=== PATIENT | male | born 1945 | race Caucasian/White ===

== ENCOUNTER 2016-08-29 10:33 | Inpatient (IN) | payer MEDICARE ==
[~2016-08-29] VITALS: Ht 175.3 cm; Wt 131.5 kg
--- NOTE | ~2016-08-29 | HEMODYNAMI ---
PATIENT:LIZETH RUIZ MEDICAL RECORD: [id number] : 45 LOCATION:D.[facility] ADMISSION DATE: 08/29/16 Generatedon:08/31/20169:43 Patient name: LIZETH RUIZ Patient #: [id number] SSN: : 1945 Date of study: 08/31/2016 Page: Of Hemodynamic Procedure Report Patient Data Patient Demographics Procedure consent was obtained First Name: LIZETH Gender: Male Last Name: JOSEPH : 1945 Middle Initial: CARMEN Age: 71 year(s) Patient #: [id number] Race: Unknown Additional ID: [id number] Contact details Address: [address] [place] [address] [address] State: [place] City: [facility] Zip code: [address] Past Medical History Allergies: No known allergies Admission Admission Data Admission Date: 08/29/2016 Admission Time: 13:07 Room #: D.2202 Weight (lbs.): 290 Weight (kg.): 131.54 Procedure Procedure Types Cath Procedure Peripheral Cath Diagnostic Procedure Cath Peripheral Abd/Extremity Extremities Bilat Lower Extremity Procedure Description Procedure Date Procedure Date: 08/31/2016 Procedure Start Time: 9:16 Procedure Staff Name Function Alexandre Escobar MD Performing Physician Suma Jackson RT Scrub Suma Owens RN Nurse Caron Murphy RT Sawmill Relief Worker Caron Murphy RT Monitor Sandra Gallardo RN Nurse Procedure Data Cath Procedure Fluoroscopy Diagnostic fluoroscopy Total fluoroscopy Time: 2.2 time: 2.2 min min Diagnostic fluoroscopy Total fluoroscopy dose: dose: 96.78 mGy 96.78 mGy Contrast Material Contrast Material Type Amount (ml) Isovue 300 16 Entry Location Entry Primary Successful Side Size Upsize Upsize Entry Closure Succes sful Closure Location (Fr) 1 (Fr) 2 (Fr) Remarks Device Remarks Femoral Left Exoseal artery Diagnostic catheters Device Type Used For End Catheter Placement Merit ULTRA BOLUS FLUSH 5Fr 65CM catheter Procedure Medications Medication Administration Route Dosage Oxygen NC 3 l/min Lidocaine 1% added to field 20 Heparin Flush Bag added to field 3 bags (1000units/500ml NS) Benadryl I.V. 50 mg Versed I.V. 1 mg Fentanyl I.V. 50 mcg Versed I.V. 0.5 mg Fentanyl I.V. 25 mcg Hemodynamics Rest Heart Rate: 80 (bpm) Snapshots Pre Cath Intra NCS Post Cath Vital Signs Time Heart Resp SPO2 NIBP (mmHg) Rhythm Pain Sedation Rate (ipm) (%) Status Level (bpm) 9:00:11 79 25 99 128/87(116) NSR 0 (11) 10(A) , No pain 9:04:18 82 23 100 131/80(122) NSR 0 (11) 10(A) , No pain 9:08:34 76 29 99 132/63(103) NSR 0 (11) 10(A) , No pain 9:12:50 74 23 99 115/61(87) NSR 0 (11) 10(A) , No pain 9:17:02 76 24 99 133/62(96) NSR 0 (11) 10(A) , No pain 9:21:20 76 26 99 131/64(103) NSR 0 (11) 9(A) , No pain 9:25:34 76 25 99 131/70(107) NSR 0 (11) 9(A) , No pain 9:29:50 77 16 100 125/67(112) NSR 0 (11) 9(A) , No pain 9:34:07 77 23 98 129/61(84) NSR 0 (11) 9(A) , No pain 9:38:23 75 21 99 138/66(112) NSR 0 (11) 9(A) , No pain 9:42:43 77 24 98 131/66(103) NSR 0 (11) 9(A) , No pain Medications Time Medication Route Dose Verified Delivered Reason Notes Effe ctiveness by by 9:13:16 Oxygen NC 3 Suma Suma used for l/min Graciela Graciela trial attorney TIA 9:13:30 Lidocaine 1% added 20ml Suma Schroeder for local to vial Graciela Shawn anesthetic field TIA SHEN 9:13:42 Heparin Flush added 3 Sumaramez Schroeder used for Bag to bags Graciela Shawn procedure (1000units/500ml field RN MD MAYO) 9:13:52 Benadryl I.V. 50 mg Suma Suma Per Graciela Graciela physician RN RN 9:16:28 Versed I.V. 1 mg Suma Suma for Graciela Graciela sedation RN RN 9:16:35 Fentanyl I.V. 50 Suma Suma for mcg Graciela Graciela sedation RN RN 9:33:46 Versed I.V. 0.5 Suma Suma for mg Graciela Graciela sedation RN RN 9:33:51 Fentanyl I.V. 25 Suma Suma for mcg Graciela Graciela sedation RN department operations manager Log Time Note 8:35:34 Patient Weight : 290 kg 8:36:15 Use device set IR Diagnostic 8:36:17 Sterile Angiographic Pack opened to sterile field. 8:36:18 Bag Decanter opened to sterile field. 8:59:21 Vital chart was started 9:00:44 Time tracking: Regular hours 9:03:37 Micropuncture VSI 4FR kit opened to sterile field. 9:03:38 Cook BENTSON 145cm guide wire opened to sterile field. 9:03:39 St Rachid 5FR Sheath opened to sterile field. 9:04:12 Plan of Care:Hemodynamics will remain stable., Cardiac rhythm will remain stable., Comfort level will be maintained., Respiratory function will remain adequate., Patient/ family verbilizes understanding of procedure., Procedure tolerated without complication., Recovers from procedure without complications.. 9:04:17 Patient received from Med/Surg to IR Alert and oriented. Tansferred to table in Supine position. 9:04:18 Correct patient and procedure confirmed by team. 9:04:20 Signed procedure consent form obtained from patient. 9:04:21 ECG and BP/O2 sat monitors applied to patient. 9:04:23 Baseline sample Acquired. 9:04:24 Full Disclosure recording started 9:04:25 9:04:31 H&P Date Dictated: 08/31/2016 Within 30 days and on chart.. 9:04:32 Pre-procedure instructions explained to patient. 9:04:32 Pre-op teaching completed and patient verbalized understanding. 9:04:35 Family unavailable. 9:04:38 Patient NPO since Midnight. 9:04:47 Patient allergic to No known allergies 9:04:50 Is the patient allergic to Iodine/contrast media? No. 9:04:52 Is patient on blood thinner?Yes 9:04:56 Patient diabetic? Yes. 9:05:01 If diabetic: On Metformin? Yes 9:05:03 9:05:05 ----Pre-sedation anethsthesia assessment.---- 9:05:17 Snore? No 9:05:20 Sleep apnea? No 9:05:26 Deviated septum? No 9:05:30 Sticks out tongue? Yes 9:05:34 Airway obstruction? No ? 9:05:37 Dentures? No ? 9:05:40 9:05:43 Pre procedure: right dorsailis pedis pulse Doppler 9:05:47 Pre procedure: left dorsailis pedis pulse Doppler 9:05:51 Pre procedure: right posterior tibial pulse Doppler 9:05:56 Pre procedure: left posterior tibial pulse Doppler 9:06:04 IV patent on arrival in left forearm with 0.9% NaCl at [facility]. 9:06:10 Left groin area was prepped with chlora-prep and draped in sterile fashion 9:06:13 Alarms reviewed by Nelson Buchanan 9:06:14 Sharps counted by scrub and verified by RMagdalenaNMagdalena 9:06:14 :13:16 Oxygen 3 l/min NC was given by Suma Owens RN; used for procedure; ::30 Lidocaine 1% 20ml vial added to field was given by Alexandre Escobar MD; for local anesthetic; :13:42 Heparin Flush Bag (1000units/500ml NS) 3 bags added to field was given by Alexandre Escobar MD; used for procedure; 9:13:52 Benadryl 50 mg I.V. was given by Suma Owens RN; Per physician; 9:15:06 Physician arrived 9:16:15 --------ALL STOP TIME OUT------ :16:16 Final Timeout: patient, procedure, and site verified with staff and physician. All members of the team are in agreement. 9:16:28 Versed 1 mg I.V. was given by Suma Owens RN; for sedation; 9:16:30 Physical assessment completed. ASA score P 3 - A patient with severe systemic disease as per Alexandre Escobar MD. 9:16:35 Fentanyl 50 mcg I.V. was given by Suma Owens RN; for sedation; 9:16:36 Sedation plan: IV Moderate Sedation Versed, Fentanyl 9:16:42 Procedure started. 9:16:50 Local anesthetic to left femerol artery with Lidocaine 1% by Alexandre Escobar MD.INITIAL ACCESS ONLY 9:16:58 Arterial access obtained using ultrasound guidance. 9:18:58 A [employer] ULTRA BOLUS FLUSH 5Fr 65CM catheter was advanced over the wire and used for . 9:25:17 Angiogram performed in multiple views. 9:33:46 Versed 0.5 mg I.V. was given by Suma Owens RN; for sedation; 9:33:51 Fentanyl 25 mcg I.V. was given by Suma Owens RN; for sedation; 9:38:01 A sheath was inserted into the Left Femoral artery 9:38:01 Sheath removed intact; hemostasis achieved with Exoseal to the Left Femoral artery. 9:38:11 Cordis 5Fr Exoseal opened to sterile field. 9:40:01 Procedure ended.(Physican Out) 9:40:13 Fluoroscopy time 02.20 minutes. 9:40:20 Fluoroscopy dose: 96.78 mGy 9:40:20 Flurop Dose total: 96.78 9:40:32 Contrast amount:Isovue 300 16ml. 9:40:34 Sharps counted by scrub and verified by R.N. 9:40:37 Procedure and supply charges have been captured, reviewed, submitted and are correct. 9:43:05 Vital chart was stopped 9:43:07 End room use (Document Last) Device Usage Item Name Manufacture Quantity Catalog Number Hospital Part Current Min imal Lot# / Charge Number Stock Stock Serial# Code Sterile Cardinal 1 [id number] Angiographic Health Pack Bag Decanter Microtek 1 [id number] [id number] 5 [employer] Micropuncture VSI VASCULAR 1 [id number] 5 VSI 4FR kit SOLUTIONS [facility] Medical 1 [id number] [id number] Rachid 5FR St Rachid 1 [id number] [id number] [id number] 5 [id number] Sheath Merit ULTRA Merit 1 [id number] 5 BOLUS FLUSH Medical 5Fr 65CM catheter Cordis 5Fr Cardinal 1 [id number] [id number] 10 Exoseal Health Signature Audit [place]et Stage Time Signature Unsigned Intra-Procedure 08/31/2016 Caron Murphy 9:43:21 AM RT(R) Signatures Monitor : Caron Murphy RT Signature : Date : Time : [facility] [address] [place] [id number]
[2016-08-29 11:43] LABS: BASOPHILS 0.2 % (0.0-2.0); EOSINOPHILS 2.7 % (0-7); HEMATOCRIT 41.3 % (42.0-54.0); HEMOGLOBIN 13.4 g/dL (13.5-17.5); IMMATURE GRANULOCYTES 0.3 % (0-5); LYMPHOCYTES 11.3 % (15-50); MCH 29.5 pg (26.0-34.0); MCHC 32.4 g/dL (31.0-37.0); MEAN PLATELET VOLUME 10.4 fL (7.4-10.4); MONOCYTES 9.8 % (2-11); NEUTROPHILS 75.7 % (40-80); PLATELET COUNT 177 10x3/uL (130-400); RBC 4.54 10x6/uL (4.20-6.10); RDW 13.6 % (11.5-14.5)
[2016-08-29 11:59] LABS: ALBUMIN 3.3 g/dL (3.4-5.0); ALKALINE PHOSPHATASE 80 U/L (46-116); ALT (SGPT) 28 U/L (10-68); BILIRUBIN - TOTAL 0.42 mg/dL (0.2-1.3); CALC OSMOLALITY 283 mosm/kg (275-300); CALCIUM 9.1 mg/dL (8.5-10.1); CARBON DIOXIDE 27.8 mmol/L (21.0-32.0); CHLORIDE - SERUM 103 mmol/L (98-107); CREATININE - SERUM 1.2 mg/dL (0.6-1.3); GLUCOSE 155 mg/dL (74-106); POTASSIUM - SERUM 4.8 mmol/L (3.5-5.1); PROTEIN - SERUM 7.5 g/dL (6.4-8.2); SODIUM 139 mmol/L (136-145); UREA NITROGEN 20 mg/dL (7-18); eGFR NON AFRICAN AMERICAN 63 mL/min (90-120)
[2016-08-29 12:06] LABS: CREATINE KINASE 67 UL (21-232); MAGNESIUM - SERUM 1.8 mg/dL (1.8-2.4); PRO BNP 372 pg/mL (0-125); TROPONIN-I < 0.017 ng/mL (0.000-0.060)
[2016-08-29 15:17] VITALS: BP 148/71; BMI 42.9
[2016-08-29] MEDS ORDERED: NORVASC5 MG PO (15:29)
[2016-08-29] MEDS ORDERED: LOVASTATIN10 MG PO (15:31)
[2016-08-29] MEDS ORDERED: GLUCOPHAGE500 MG PO (15:32)
[2016-08-29] MEDS ORDERED: GLUCOTROL 5 MG T5 MG PO (15:34)
[2016-08-29] MEDS ORDERED: MULTIPLE VITAMI1 TA1 PO (15:35)
[2016-08-29] MEDS ORDERED: LOW DOSE ASPIRI81 M1 PO (15:35)
[2016-08-29] MEDS ORDERED: SYMBICORT 80-10.2 GM INH (15:35)
[2016-08-29] MEDS ORDERED: FERROUS SULFAT325 MG PO (15:36)
[2016-08-29] MEDS ORDERED: NIASPAN500 MG PO (15:36)
[2016-08-29 15:51] VITALS: BP 148/71
[2016-08-29 21:00] VITALS: BP 167/84
[2016-08-30 02:00] VITALS: BP 168/80
[2016-08-30 05:00] VITALS: BP 149/63
[2016-08-30 05:51] LABS: BASOPHILS 0.2 % (0.0-2.0); EOSINOPHILS 2.1 % (0-7); HEMATOCRIT 40.5 % (42.0-54.0); HEMOGLOBIN 12.9 g/dL (13.5-17.5); IMMATURE GRANULOCYTES 0.2 % (0-5); MCH 28.9 pg (26.0-34.0); MCHC 31.9 g/dL (31.0-37.0); MCV 90.8 fL (80.0-100.0); MEAN PLATELET VOLUME 10.7 fL (7.4-10.4); MONOCYTES 17.6 % (2-11); NEUTROPHILS 63.9 % (40-80); PLATELET COUNT 180 10x3/uL (130-400); RBC 4.46 10x6/uL (4.20-6.10); RDW 13.8 % (11.5-14.5); WBC 5.8 10x3/uL (4.8-10.8)
[2016-08-30 06:13] LABS: ALBUMIN 2.9 g/dL (3.4-5.0); BILIRUBIN - TOTAL 0.5 mg/dL (0.2-1.3); CALCIUM 8.7 mg/dL (8.5-10.1); CARBON DIOXIDE 30.1 mmol/L (21.0-32.0); CREATININE - SERUM 1.3 mg/dL (0.6-1.3); PROTEIN - SERUM 6.7 g/dL (6.4-8.2)
[2016-08-30 06:14] LABS: ANION GAP 11.8 mmol/L (8-16); POTASSIUM - SERUM 3.9 mmol/L (3.5-5.1)
[2016-08-30 07:47] VITALS: BP 124/66
[2016-08-30 10:46] VITALS: Ht 175.3 cm; Wt 131.5 kg
[2016-08-30 12:25] VITALS: BP 122/62
[2016-08-30 15:38] VITALS: BP 123/59
[2016-08-30 16:32] LABS: APPEARANCE CLEAR (CLEAR); BILIRUBIN NEGATIVE (NEGATIVE); COLOR YELLOW (YELLOW); GLUCOSE NEGATIVE (NEGATIVE); KETONE NEGATIVE (NEGATIVE); LEUKOCYTE ESTERASE NEGATIVE (NEGATIVE); NITRITE NEGATIVE (NEGATIVE); PROTEIN NEGATIVE (NEGATIVE); SPECIFIC GRAVITY 1.015 (1.005-1.020); UROBILINOGEN NORMAL (NORMAL)
[2016-08-30 19:00] VITALS: BP 131/60
[2016-08-31] VITALS (13 sets, daily range): BP systolic 117–163; BP diastolic 58–96
[2016-08-31 06:13] LABS: BASOPHILS 0.2 % (0.0-2.0); EOSINOPHILS 3.9 % (0-7); HEMATOCRIT 38.8 % (42.0-54.0); HEMOGLOBIN 12.4 g/dL (13.5-17.5); IMMATURE GRANULOCYTES 0.4 % (0-5); LYMPHOCYTES 16.5 % (15-50); MCH 29.1 pg (26.0-34.0); MCV 91.1 fL (80.0-100.0); MEAN PLATELET VOLUME 10.2 fL (7.4-10.4); MONOCYTES 15.7 % (2-11); NEUTROPHILS 63.3 % (40-80); PLATELET COUNT 159 10x3/uL (130-400); RBC 4.26 10x6/uL (4.20-6.10); RDW 13.5 % (11.5-14.5); WBC 4.7 10x3/uL (4.8-10.8)
[2016-08-31 06:31] LABS: ALBUMIN 2.7 g/dL (3.4-5.0); ANION GAP 12.2 mmol/L (8-16); BILIRUBIN - TOTAL 0.3 mg/dL (0.2-1.3); CALCIUM 8.1 mg/dL (8.5-10.1); CARBON DIOXIDE 30.7 mmol/L (21.0-32.0); CREATININE - SERUM 1.1 mg/dL (0.6-1.3); POTASSIUM - SERUM 3.9 mmol/L (3.5-5.1); PROTEIN - SERUM 6.4 g/dL (6.4-8.2)
[2016-08-31 07:43] LABS: APTT 38.8 SECONDS (22.8-39.4); INR 1.12 (0.85-1.17); PROTIME 14.3 SECONDS (11.6-15.0)
--- NOTE | 2016-08-31 08:14 | CN ---
PATIENT NAME:LIZETH RUIZ MEDICAL RECORD: [id number] : 45 LOCATION:D.[facility] ADMIT DATE: 08/29/16 ACCOUNT: [id number] CONSULTING PHYSICIAN: LISA COLEMAN MD REFERRING PHYSICIAN: CRISTIANE VAIL M.D. DATE OF CONSULTATION: 08/30/2016 Surgical Consultation SURGEON: Lisa Coleman MD. REASON FOR CONSULTATION: Lower extremity cellulitis. HISTORY OF PRESENT ILLNESS: A 71-year-old male who presents to the hospital with bilateral lower extremity swelling and low back pain. He says that he began developing blisters of his lower extremities below the knee and was about 2 weeks ago. He was treated for cellulitis as an outpatient, it is not improved. The patient has continued to have worsening swelling and superficial ____ of the skin. This has first patient said he had one episode a lower extremity cellulitis once approximately 2 years ago. The patient does have a history of diabetes and morbid obesity as well as congestive heart failure. The patient currently describes the pain as constant. It is tingling and is currently a 5/10. His wounds were dressed earlier today by the wound care nurse with wet-to-dry dressings and Kerlix wraps. PAST MEDICAL HISTORY: Congestive heart failure, hypertension, morbid obesity, and diabetes. ALLERGIES: No known drug allergies. HOME MEDICATIONS: Amlodipine, lovastatin, metformin, glipizide, Symbicort, aspirin, multivitamin, ferrous sulfate, ____. FAMILY HISTORY: The patient denies any history of cancer or diabetes in his mother and father. SOCIAL HISTORY: He denies any history of smoking. He does not drink alcohol socially. He denies recreational drug use. REVIEW OF SYSTEMS: A 10-point review of systems was obtained. Pertinent positives and negatives as per the HPI. PHYSICAL EXAMINATION: VITAL SIGNS: Temperature 99, heart rate 88, respirations 17, blood pressure 148/71, saturating 97% on room air. GENERAL: This is a well-developed and well-nourished, morbidly obese male in moderate distress. EYES: Extraocular muscles intact. EARS, NOSE AND THROAT: No oropharyngeal erythema or exudate. CARDIOVASCULAR: Normal sinus rhythm. PULMONARY: He has got decreased breath sounds bilaterally with bilateral crackles. ABDOMEN: Obese, soft, nontender and nondistended. NEUROLOGIC: GCS of 15 with no focal deficits. PSYCHIATRIC: He is oriented times 3. CONSULT REPORT [id number] LIZETH RUIZ EXTREMITIES: He has got bilateral venous stasis ulcers of his lower extremities below the knee and the right is more edematous than the left. The patient has palpable femoral pulses. He has palpable popliteal pulses, although the popliteal on the right is weak. He has got superficial sloughing of the skin and some pitting on the top of the foot consistent with lymphedema. LABORATORY DATA: Please see electronic medical record for full list of laboratory data which was personally reviewed. IMAGING: CTA Aorta with runoff images were personally reviewed. The patient shows runoff in both the right and left lower extremities with a 2-vessel runoff on the left. The patient has occlusion of the left peroneal artery. No iliac or aortic areas of stenosis and subcutaneous edema of bilateral lower extremities. Arterial ultrasound shows elevated velocities in the right popliteal and superficial femoral suggesting stenosis. No evidence of DVT. IMPRESSION: This is a 71-year-old male admitted for low back pain, progressively worsening lower extremity cellulitis, congestive heart failure and diabetes. The patient has venous stasis ulcers as well as a component of lymphedema, which may be independent from his congestive heart failure. The patient also has peripheral vascular disease with right femoral and popliteal stenosis. PLAN: 1. Wound care has seen and evaluated the patient, agree with wet-to-dry dressings. 2. Two-three pillow lower extremity elevation at all times while at rest. 3. IV antibiotics. 4. I will discuss with my partner or interventional radiologist for endovascular evaluation and/or angioplasty of the right lower extremity. 5. We will start the patient on anticoagulation. TRANSINT:[id number] Voice Confirmation ID: [id number] DOCUMENT ID: [id number] LISA COLEMAN MD at 0814 CC: [id number] DICTATION DATE: 08/30/161855 LEARNING AND DEVELOPMENT ASSOCIATE: 08/31/16 0439 ADM IN [place] [id number] [place] [id number]
[2016-09-01] VITALS: BP 159/65
[2016-09-01 04:00] VITALS: BP 143/59
[2016-09-01 05:22] LABS: BASOPHILS 0.2 % (0.0-2.0); EOSINOPHILS 4.7 % (0-7); HEMATOCRIT 39.4 % (42.0-54.0); HEMOGLOBIN 12.3 g/dL (13.5-17.5); IMMATURE GRANULOCYTES 0.4 % (0-5); MCH 28.6 pg (26.0-34.0); MCHC 31.2 g/dL (31.0-37.0); MCV 91.6 fL (80.0-100.0); MEAN PLATELET VOLUME 10.4 fL (7.4-10.4); MONOCYTES 13.6 % (2-11); NEUTROPHILS 66.1 % (40-80); PLATELET COUNT 172 10x3/uL (130-400); RDW 13.7 % (11.5-14.5); WBC 5.1 10x3/uL (4.8-10.8)
[2016-09-01 05:56] LABS: ALBUMIN 2.6 g/dL (3.4-5.0); ANION GAP 10.5 mmol/L (8-16); BILIRUBIN - TOTAL 0.38 mg/dL (0.2-1.3); CALCIUM 8.5 mg/dL (8.5-10.1); CARBON DIOXIDE 28.8 mmol/L (21.0-32.0); CREATININE - SERUM 1.2 mg/dL (0.6-1.3); POTASSIUM - SERUM 4.3 mmol/L (3.5-5.1); PROTEIN - SERUM 6.5 g/dL (6.4-8.2)
[2016-09-01 07:38] VITALS: BP 126/59
[2016-09-01 11:47] VITALS: BP 159/77
[2016-09-01 15:34] VITALS: BP 116/61
[2016-09-01 20:00] VITALS: BP 135/84
[2016-09-02] VITALS: BP 123/68
[2016-09-02 04:00] VITALS: BP 134/52
[2016-09-02 05:11] LABS: BASOPHILS 0.2 % (0.0-2.0); EOSINOPHILS 5.9 % (0-7); HEMATOCRIT 36.6 % (42.0-54.0); HEMOGLOBIN 11.6 g/dL (13.5-17.5); IMMATURE GRANULOCYTES 0.4 % (0-5); LYMPHOCYTES 17.2 % (15-50); MCH 28.6 pg (26.0-34.0); MCHC 31.7 g/dL (31.0-37.0); MCV 90.4 fL (80.0-100.0); MEAN PLATELET VOLUME 10.2 fL (7.4-10.4); MONOCYTES 16.5 % (2-11); NEUTROPHILS 59.8 % (40-80); PLATELET COUNT 170 10x3/uL (130-400); RBC 4.05 10x6/uL (4.20-6.10); RDW 13.4 % (11.5-14.5); WBC 4.8 10x3/uL (4.8-10.8)
[2016-09-02 05:31] LABS: ALBUMIN 2.5 g/dL (3.4-5.0); ANION GAP 8.6 mmol/L (8-16); BILIRUBIN - TOTAL 0.3 mg/dL (0.2-1.3); CALCIUM 8.4 mg/dL (8.5-10.1); CARBON DIOXIDE 28.6 mmol/L (21.0-32.0); CREATININE - SERUM 1.1 mg/dL (0.6-1.3); POTASSIUM - SERUM 4.2 mmol/L (3.5-5.1); PROTEIN - SERUM 6.1 g/dL (6.4-8.2)
[2016-09-02 08:25] VITALS: BP 137/61
[2016-09-02 16:26] VITALS: BP 132/59
[2016-09-02 20:00] VITALS: BP 145/62
[2016-09-03] VITALS: BP 140/63
[2016-09-03 04:00] VITALS: BP 136/59
[2016-09-03 05:09] LABS: BASOPHILS 0.2 % (0.0-2.0); EOSINOPHILS 7.1 % (0-7); HEMATOCRIT 37.4 % (42.0-54.0); HEMOGLOBIN 11.9 g/dL (13.5-17.5); IMMATURE GRANULOCYTES 0.6 % (0-5); LYMPHOCYTES 17.2 % (15-50); MCH 28.7 pg (26.0-34.0); MCHC 31.8 g/dL (31.0-37.0); MCV 90.3 fL (80.0-100.0); MEAN PLATELET VOLUME 9.6 fL (7.4-10.4); MONOCYTES 11.8 % (2-11); NEUTROPHILS 63.1 % (40-80); PLATELET COUNT 155 10x3/uL (130-400); RBC 4.14 10x6/uL (4.20-6.10); RDW 13.6 % (11.5-14.5); WBC 4.8 10x3/uL (4.8-10.8)
[2016-09-03 05:57] LABS: ALBUMIN 2.5 g/dL (3.4-5.0); BILIRUBIN - TOTAL 0.34 mg/dL (0.2-1.3); CALCIUM 8.4 mg/dL (8.5-10.1); CARBON DIOXIDE 28.9 mmol/L (21.0-32.0); CREATININE - SERUM 1.1 mg/dL (0.6-1.3); POTASSIUM - SERUM 3.9 mmol/L (3.5-5.1); PROTEIN - SERUM 6.3 g/dL (6.4-8.2)
[2016-09-03 07:56] VITALS: BP 137/57
[2016-09-03] MEDS ORDERED: CLEOCIN HCL300 MG PO (10:57)
[2016-09-03] MEDS ORDERED: ACIDOPHILUS LAC1 CAP PO (10:57)
[2016-09-03] MEDS ORDERED: CYCLOBENZAPRINE10 MG PO (11:26)
[2016-09-03] MEDS ORDERED: NORCO 7.5/325 T1 TA1 PO (11:26)
== END 2016-09-03 15:15 | disposition home health service (06) | DRG 300 ==
LOC: D.ER 10:33 → D.MS 13:07
PROVIDERS: Emergency Medicine; Physician Assistant Medical; Radiology Diagnostic Radiology; ADMIT Family Medicine
PROC: B41F1ZZ Fluoroscopy of Right Lower Extremity Arteries using Low Osmolar Contrast (ICD-10-PCS; principal; 2016-08-30)
PROC: B41G1ZZ Fluoroscopy of Left Lower Extremity Arteries using Low Osmolar Contrast (ICD-10-PCS; principal; 2016-08-30)
DX: I87.2 Venous insufficiency (chronic) (peripheral) (principal); L03.116 Cellulitis of left lower limb; L03.115 Cellulitis of right lower limb; Z68.41 Body mass index [BMI] 40.0-44.9, adult; E11.51 Type 2 diabetes mellitus with diabetic peripheral angiopathy without gangrene; I89.0 Lymphedema, not elsewhere classified; I11.0 Hypertensive heart disease with heart failure; I50.9 Heart failure, unspecified; E66.01 Morbid (severe) obesity due to excess calories

== ENCOUNTER → 2017-10-22 08:32 | Outpatient (CLI) | payer MEDICARE ==
[2016-08-30 10:46] VITALS: BMI 42.8
[~2017-10-22 08:32] MED LIST: ACIDOPHILUS LAC1 CAP PO; CLEOCIN HCL300 MG PO; CYCLOBENZAPRINE10 MG PO; FERROUS SULFAT325 MG PO; GLUCOPHAGE500 MG PO; GLUCOTROL 5 MG T5 MG PO; LOVASTATIN10 MG PO; LOW DOSE ASPIRI81 M1 PO; MULTIPLE VITAMI1 TA1 PO; NIASPAN500 MG PO; NORCO 7.5/325 T1 TA1 PO; NORVASC5 MG PO; SYMBICORT 80-10.2 GM INH
== END | disposition home or self-care (01) ==
LOC: D.RT 08:32
DX: J44.9 Chronic obstructive pulmonary disease, unspecified (principal)

== ENCOUNTER → 2017-11-19 07:53 | Outpatient (CLI) | payer MEDICARE, MEDICAID ==
[2016-08-30 10:46] VITALS: BMI 42.8
== END | disposition home or self-care (01) ==
LOC: D.RAD 07:53
DX: Z12.11 Encounter for screening for malignant neoplasm of colon (principal); R10.11 Right upper quadrant pain

== ENCOUNTER 2019-01-13 17:59 | Inpatient (IN) | payer MEDICARE, MEDICAID ==
[~2019-01-13] VITALS: Ht 175.3 cm; Wt 112.3 kg
--- NOTE | ~2019-01-13 | HEMODYNAMI ---
PATIENT:LIZETH RUIZ MEDICAL RECORD: [id number] : 45 LOCATION:[facility] D.2104 ADMISSION DATE: 01/13/19 Generatedon:01/16/201912:23 Patient name: LIZETH RUIZ Patient #: [id number] SSN: : 1945 Date of study: 01/16/2019 Page: Of Hemodynamic Procedure Report Patient Data Patient Demographics Procedure consent was obtained First Name: LIZETH Gender: Male Last Name: JOSEPH : 1945 [facility] Initial: CARMEN Age: 73 year(s) Patient #: [id number] Race: Unknown Additional ID: [id number] Contact details Address: [address] [place] [address] State: [place] City: [facility] Zip code: [address] Past Medical History Allergies: No known allergies Admission Admission Data Admission Date: 01/13/2019 Admission Time: 22:20 Room #: D.2104 Height (in.): 68.9 BSA: 2.35 (m2) Height (cm.): 175 BMI: 40.16 (kg/m2) Weight (lbs.): 271.17 Weight (kg.): 123 Lab Results Lab Result Date: 01/16/2019 Lab Result Time: 4:46 Biochemistry Name Units Result Min Max BUN mg/dl 45 --(----)-* 7 18 Creatinine mg/dl 1.4 --(----)*- 0.6 1.3 CBC Name Units Result Min Max Hematocrit % 35.5 *-(----)-- 42 54 Hemoglobin g/dl 11.4 *-(----)-- 13.5 17.5 Procedure Procedure Types Cath Procedure Diagnostic Procedure C [facility] w/Coronaries Sedation Charges Moderate Sedation up to 15 minutes PCI Procedure Coronary Stent Coronary Stent Initial Procedure Description Procedure Date Procedure Date: 01/16/2019 Procedure Start Time: 11:58 Procedure End Time: 12:21 Procedure Staff Name Function Dameon Benavidez MD Performing Physician Kya Edmondson RT Monitor Josey Crews RT Scrub Paz Mitchell RN Nurse Procedure Data Cath Procedure Fluoroscopy Diagnostic fluoroscopy Total fluoroscopy Time: 3.1 time: 3.1 min min Diagnostic fluoroscopy Total fluoroscopy dose: 747 dose: 747 mGy mGy Contrast Material Contrast Material Type Amount (ml) Isovue 300 104 Entry Location Entry Primary Successful Side Size Upsize Upsize Entry Closure Succes sful Closure Location (Fr) 1 (Fr) 2 (Fr) Remarks Device Remarks Femoral Right 5 Fr 6 Fr Exoseal artery Short Estimated blood loss: 10 ml Diagnostic catheters Device Type Used For End Catheter Placement MULTIPACK JL 4.0 5Fr Procedure catheter MULTIPACK 3DRC 5Fr Procedure catheter MULTIPACK Pigtail 5 Fr Procedure catheter Procedure Complications No complications Procedure Medications Medication Administration Route Dosage 0.9% NaCl I.V. 100 ml/hr Oxygen etCO2 Nasal cannula 2 l/min Lidocaine 2% added to field 20 Heparin Flush Bag added to field 2 bags (1000units/500ml NS) Heparin Bolus I.V. 5000 units Integrilin (Bolus I.V. 11.3 ml 2mg/ml) Plavix P.O. 600 mg Versed I.V. 2 mg Fentanyl I.V. 50 mcg Hemodynamics Rest BSA: 2.35 (m2) O2 Consumption: Estimated: 274.35 (ml/min) O2 Consumption indexed : Estimated:116.74 (ml/min/m) Heart Rate: 74 (bpm) Pressure Samples Time Site Value (mmHg) Purpose Heart Use Rate(bpm) 12:03 LV 124/10,18 EDP 70 Gradients Valve Time Site Site Mean SEP/DFP Peak To Heart Use 1 2 (mmHg) (sec/min) Peak Rate (mmHg) (bpm) Aortic 12:03 LV AO 70 Snapshots Pre Cath Intra NCS Post Cath Vital Signs Time Heart Resp SPO2 etCO2 NIBP (mmHg) Rhythm Pain Sedation Rate (ipm) (%) (mmHg) Status Level (bpm) 11:46:12 79 22 96 30.7 134/74(95) NSR 0 (11) 10(A) , No pain 11:50:34 67 22 95 20.9 139/92(98) NSR 0 (11) 10(A) , No pain 11:55:00 70 15 95 11.9 122/57(94) NSR 0 (11) 10(A) , No pain 11:59:25 71 15 99 14.9 122/63(90) NSR 0 (11) 9(A) , No pain 12:03:47 70 18 98 16 125/63(95) NSR 0 (11) 9(A) , No pain 12:08:07 70 32 99 28.2 117/62(84) NSR 0 (11) 9(A) , No pain 12:12:29 70 38 100 11.9 120/61(92) NSR 0 (11) 9(A) , No pain 12:16:49 77 25 97 29.9 136/71(112) NSR 0 (11) 10(A) , No pain 12:21:17 97 27.7 136/72(113) NSR 0 (11) 10(A) , No pain Medications Time Medication Route Dose Verified Delivered Reason Notes Effectiveness by by 11:44:56 0.9% NaCl I.V. 100 Dameon Paz used for ml/hr [facility] procedure MD WEBER 11:45:03 Oxygen etCO2 2 Dameon Paz used for Nasal l/min [facility] procedure cannula MD WEBER 11:45:08 Lidocaine 2% added 20ml Dameon Xiao for local to vial [facility] anesthetic field MD SHEN 11:45:12 Heparin Flush added 2 Dameon Xiao used for Bag to bags [facility] procedure (1000units/500ml field MD SHEN NS) 11:57:07 Versed I.V. 2 mg Dameon Paz for sedation [facility] Carmen Mitchell MD, RN 11:57:29 Fentanyl I.V. 50 Dameon Boyda for sedation mcg [facility] Carmen Mitchell MD, RN 12:07:01 Heparin Bolus I.V. 5000 Dameon Boyda for verif ied units [facility] anticoagulation with Dr. MD WEBER [place] 12:07:16 Integrilin I.V. 11.3 Dameon Boyda for waste d (Bolus 2mg/ml) ml [facility] Carmen Mitchell antiplatelet 8.7mL MD WEBER therapy 12:07:36 Plavix P.O. 600 Dameon Mullen for mg [facility] Carmen Mitchell antiplatelet MD WEBER therapy Procedure Log Time Note 11:23:35 Signed procedure consent form obtained from patient. 11:23:37 Diagnostic Cath status Urgent 11:23:38 Time tracking: Regular hours (M-F 7:00 - 5:00) 11:23:43 Plan of Care:Hemodynamics will remain stable., Cardiac rhythm will remain stable., Comfort level will be maintained., Respiratory function will remain adequate., Patient/ family verbilizes understanding of procedure., Procedure tolerated without complication., Recovers from procedure without complications.. 11:23:57 Patient Weight : 271.17 lbs 11:24:47 Patient Height : 68.9 inches 11:25:09 Josey MOODY(R) sent for patient. Start room use. 11:41:59 Patient received from Med II to CCL 1 Alert and oriented. Tansferred to table in Supine position. 11:42:00 Warm blankets applied, and shiv hugger turned on for patient comfort. 11:42:07 Correct patient and procedure confirmed by team. 11:42:10 ECG and BP/O2 sat monitors applied to patient. 11:42:28 H&P Date Dictated: 01/14/2019 Within 30 days and on chart.. 11:42:31 Pre-procedure instructions explained to patient. 11:42:31 Pre-op teaching completed and patient verbalized understanding. 11:42:33 Family in patients room. 11:42:38 Patient NPO since Breakfast. 11:42:45 Patient allergic to No known allergies 11:43:03 Is the patient allergic to Iodine/contrast media? No. 11:43:43 Is patient on blood thinner?No 11:43:46 Patient diabetic? Yes. 11:43:47 If diabetic: On Metformin? Yes 11:43:52 Previous problem with sedation/anesthesia? No ? 11:43:55 Snore? Yes 11:43:56 Sleep apnea? No 11:43:57 Deviated septum? No 11:43:59 Opens mouth fully? Yes 11:44:01 Sticks out tongue? Yes 11:44:14 Airway obstruction? Yes pneumonia 11:44:27 Dentures? No ? 11:44:46 Vital chart was started 11:44:56 0.9% NaCl 100 ml/hr I.V. was administered by Paz Mitchell RN; used for procedure; 11:44:59 Pre procedure: right dorsailis pedis pulse 1+ Palpable, but thready & weak; easily obliterated 11:45:01 Patient pain scale 0/10 ?. 11:45:03 Oxygen 2 l/min etCO2 Nasal cannula was administered by Paz Mitchell RN; used for procedure; 11:45:08 Lidocaine 2% 20ml vial added to field was administered by Dameon Benavidez MD; for local anesthetic; 11:45:12 Heparin Flush Bag (1000units/500ml NS) 2 bags added to field was administered by Dameon Benavidez MD; used for procedure; 11:45:15 IV patent on arrival in left forearm with 0.9% NaCl at [facility]. 11:46:21 Lab Result : BUN 45 mg/dl 11:46:21 Lab Result : Hemoglobin 11.4 g/dl 11:46:21 Lab Result : Creatinine 1.4 mg/dl 11:46:21 Lab Result : Hematocrit 35.5 % 11:46:24 Lab results completed and on chart. 11:48:01 Right groin area was prepped with chlora-prep and draped in sterile fashion 11:48:02 Alarms reviewed by R. N. 11:48:02 Sharps counted by scrub and verified by R.N. 11:48:05 Use device set Femoral Dx 11:48:06 ACIST Syringe (09830) opened to sterile field. 11:48:07 Bag Decanter (2002S) opened to sterile field. 11:48:09 ACIST Hand Control (15555) opened to sterile field. 11:48:09 ACIST Manifold (26312) opened to sterile field. 11:48:10 Tegaderm 4 x 4 (1626W) opened to sterile field. 11:48:11 Medline Cath Pack ([id number]) opened to sterile field. 11:48:11 DIAGNOSTIC WIRE .035 260cm J wire (068059) opened to sterile field. 11:48:12 DIAGNOSTIC Multipack 5Fr catheter set (MI8315) opened to sterile field. 11:48:13 SHEATH 5FR Evans (LSI547) opened to sterile field. 11:53:34 Baseline sample Acquired. 11:53:37 Rhythm: sinus rhythm 11:53:39 Full Disclosure recording started 11:56:11 --------ALL STOP TIME OUT------ 11:56:11 Final Timeout: patient, procedure, and site verified with staff and physician. All members of the team are in agreement. 11:56:12 Right groin site verified by team. 11:56:15 Maximum allowable Isovue 300 dose 300ml. Physician notified. (300ml for normal creatinines. For patients with creatinine of 1.7 or higher multiply weight(kg) x 5 divided by creatinine.) 11:56:21 Fire Safety Assessment: A--An alcohol-based skin anteseptic being used preoperatively., C--Open oxygen or nitrous oxide is being used., D--An ESU, laser, or fiber-optic light is being used. 11:56:24 Physical assessment completed. ASA score P 2 - A patient with mild systemic disease as per Dameon Benavidez MD. 11:56:26 Sedation plan: IV Moderate Sedation Medication:Versed, Fentanyl 11:56:35 Zero performed for pressure channel P1 11:57:07 Versed 2 mg I.V. was administered by Paz Mitchell RN; for sedation; 11:57:29 Fentanyl 50 mcg I.V. was administered by Paz Mitchell RN; for sedation; 11:58:01 Procedure started. 11:58:08 Local anesthetic to right femoral artery with Lidocaine 2% by Dameon Benavidez MD.INITIAL ACCESS ONLY 11:58:43 A 5 Fr sheath was inserted into the Right Femoral artery 11:58:55 A MULTIPACK JL 4.0 5Fr catheter was advanced over the wire and used for Procedure. 12:00:31 LCA angiography performed. 12:00:40 Catheter removed. 12:00:52 A MULTIPACK 3DRC 5Fr catheter was advanced over the wire and used for Procedure. 12:01:47 RCA angiography performed. 12:01:48 Catheter removed. 12:02:06 A MULTIPACK Pigtail 5 Fr catheter was advanced over the wire and used for Procedure. 12:02:44 LV gram done using PHIPPS 12:02:46 Injector settings: Ml/sec: 10, Volume: 20, 12:03:04 LV hemodynamics recorded. 12:03:19 EF : 50 % 12:03:40 Catheter removed. 12:03:51 GUIDE 6FR HS I catheter (LA6HSI) opened to sterile field. 12:03:51 SHEATH 6FR Evans (TWG016) opened to sterile field. 12:04:02 WHISPER 300cm guide wire ([id number]) opened to sterile field. 12:04:02 INFLATOR Merit Annamaria (RB4855) opened to sterile field. 12:05:26 Sheath upsized to a 6 Fr Short. 12:05:36 6 Fr HS 1 guide catheter was inserted over the wire 12:06:17 WHISPER 300 wire advanced. 12:07:01 Heparin Bolus 5000 units I.V. was administered by Paz Mitchell RN; for anticoagulation; verified with Dr. Figueredo 12:07:16 Integrilin (Bolus 2mg/ml) 11.3 ml I.V. was administered by Paz Mitchell RN; for antiplatelet therapy; wasted 8.7mL 12:07:36 Plavix 600 mg P.O. was administered by Paz Mitchell RN; for antiplatelet therapy; 12:07:43 Wire advanced across lesion. 12:08:24 Inflate balloon Inflation number: 1 A EMERGE OTW 3.0 x 15 balloon ([id number]) was prepped and advanced across the Dist RCA, then inflated to 14 SHAHBAZ for 0:10 (min:sec). 12:08:34 Balloon removed over the wire. 12:10:47 Place stent Inflation Number: 2 A COBRA RX 3.5 X 15 Stent was prepped and advanced across the Dist RCA. The stent was deployed at 14 SHAHBAZ for 0:10 (min:sec). 12:11:04 Stent catheter was removed intact over wire. 12:11:05 Wire removed. 12:11:05 Guide catheter removed. 12:11:42 EXOSEAL 6Fr (EX600) opened to sterile field. 12:12:17 Sheath removed intact; hemostasis achieved with Exoseal to the Right Femoral artery. 12:12:20 Procedure ended.(Physican Out) 12:13:07 Fluoroscopy time 03.10 minutes. 12:13:11 Fluoroscopy dose: 747 mGy 12:13:11 Flurop Dose total: 747 12:13:14 Contrast amount:Isovue 300 104ml. 12:13:47 Sharps counted by scrub and verified by R.N. 12:13:50 Post-op/insertion site Right Femoral artery dressed using a 4 x 4 and Tegaderm. 12:13:52 Post-procedure physical assessment completed. ASA score P 2 - A patient with mild systemic disease as per Dameon Benavidez MD. 12:13:55 Post procedure rhythm: sinus rhythm 12:13:58 Estimated blood loss: 10 ml 12:14:01 Post procedure instruction explained to patient.Patient verbalizes understanding. 12:14:01 Patient needs reinforcement of post procedure teaching. 12:15:19 Procedure type changed to Cath procedure, Diagnostic procedure, LHC, LHC w/Coronaries, Sedation Charges, Moderate Sedation up to 15 minutes, PCI procedure, Coronary Stent, Coronary Stent Initial 12:15:54 Procedure and supply charges have been captured, reviewed, submitted and are correct. 12:15:56 Procedure Complication : No complications 12:21:06 FEMSTOP Gold ([id number]) opened to sterile field. 12:21:14 Femstop placed over the right femoral artery at 150 mmHg. Hemostasis achieved. 12:21:34 Vital chart was stopped 12:21:35 See physician's report for complete and final results. 12:21:36 Report given to Med II. 12:21:38 Patient transfered to [facility] II with Bed. 12:21:41 Procedure ended. 12:21:41 Full Disclosure recording stopped 12:21:44 End room use (Document Last) Intervention Summary Intervention Notes Time ActionType Lesion and Equipment Action# Pressure Duration Attributes Used 12:08:24 Inflate Dist RCA EMERGE OTW 1 14 00:10 balloon 3.0 x 15 balloon ([id number]) 12:10:47 Place stent Dist RCA COBRA RX 3.5 2 14 00:10 X 15 Stent Device Usage Item Name Manufacture Quantity Catalog Number [facility] Minimal Lot# / Charge Number Stock Stock Serial# Code ACIST Syringe Acist 1 96048 517837 186511 788685 20 (53190) Medical Systems Inc Bag Decanter Microtek 1 800707 03875 130816 5 (2001S) Medical Inc. ACIST Hand Acist 1 32531 235426 436136 095809 5 Control Medical (18805) Systems Inc ACIST Manifold Acist 1 94388 374535 308661 294002 5 (42559) Medical Systems Inc Tegaderm 4 x 4 3M 1 1626W 109874 275413 397882 5 (1626W) Medline Cath Medline 1 [id number] 822170 27258 628895 5 Pack ([id number]) DIAGNOSTIC St Rachid 1 880936 228186 557936 100041 30 WIRE .035 260cm J wire (758926) DIAGNOSTIC Cardinal 1 JS5063 258369 26648 101350 30 Multipack 5Fr Health catheter set (LL6170) SHEATH 5FR Terumo 1 GUS412 406424 529945 727726 5 Evans (LBL085) MULTIPACK JL Cardinal 1 139615 5 4.0 5Fr Health catheter MULTIPACK 3DRC Cardinal 1 878054 5 5Fr catheter Health MULTIPACK Cardinal 1 049645 5 Pigtail 5 Fr Health catheter GUIDE 6FR HS I Medtronic 1 LA6HSI 932016 83542 455263 1 catheter (LA6HSI) SHEATH 6FR Terumo 1 YCQ456 309105 125347 387841 40 Evans (RVR038) WHISPER 300cm Archer 1 [id number] 355340 989922 541803 5 guide wire Vascular ([id number]) INFLATOR Merit Merit 1 GH1936 074108 096120 156622 15 [facility] (JI1217) EMERGE OTW 3.0 [place] 1 [id number] 961368 372460 230713 5 [id number] x 15 balloon Scientific ([id number]) COBRA RX 3.5 X Celonova 1 [id number] 168666 [id number] 024250 7 1 [id number] 15 stent Biosciences ([id number]) EXOSEAL 6Fr Cardinal 1 EX600 891142 274566 816592 10 (EX600) Health FEMSTOP Gold St Rachid 1 L52573 403271 043636 314793 5 ([id number]) Signature Audit [place] Stage Time Signature Unsigned Intra-Procedure 01/16/2019 Kya Edmondson 12:23:54 PM RT(R) Signatures Monitor : Kya Edmondson Signature : RT Date : Time : [facility] [address] [place] [address]
[2019-01-13] MEDS ORDERED: SYMBICORT 16010.2 GM INH (18:37)
[2019-01-13] MEDS ORDERED: GLUCOPHAGE1000 MG PO (18:37)
[2019-01-13] MEDS ORDERED: NORVASC10 MG PO (18:38)
[2019-01-13 19:23] LABS: BASOPHILS 0.2 % (0-2); EOSINOPHILS 0.3 % (0-7); LYMPHOCYTES 5.7 % (15-50); MCH 28.8 pg (26.0-34.0); MCHC 32.4 g/dL (31.0-37.0); MCV 88.7 fL (80.0-100.0); MEAN PLATELET VOLUME 10.8 fL (7.4-10.4); MONOCYTES 12.4 % (2-11); NEUTROPHILS 79.4 % (40-80); RBC 4.17 10x6/uL (4.20-6.10); RDW 15.3 % (11.5-14.5); WBC 11.4 10x3/uL (4.8-10.8)
[2019-01-13 19:25] LABS: PLATELET COUNT 239 10x3/uL (130-400)
[2019-01-13 19:46] LABS: ALBUMIN 2.5 g/dL (3.4-5.0); ANION GAP 14.3 mmol/L (8-16); BILIRUBIN - TOTAL 0.72 mg/dL (0.2-1.3); CALCIUM 8.8 mg/dL (8.5-10.1); CARBON DIOXIDE 26.3 mmol/L (21.0-32.0); CREATININE - SERUM 1.2 mg/dL (0.6-1.3); POTASSIUM - SERUM 3.6 mmol/L (3.5-5.1); PROTEIN - SERUM 7.5 g/dL (6.4-8.2)
[2019-01-13 21:52] LABS: TROPONIN-I 0.206 ng/mL (0.000-0.060)
--- NOTE | 2019-01-13 22:20 | NUR ---
ORDERED ROCEPHIN COMPLETE AT 2220.
--- NOTE | 2019-01-13 23:10 | NUR ---
ORDERED MICHI COMPLETED AT 2310.
--- NOTE | 2019-01-14 00:15 | NUR ---
RECIEVED REPORT FROM JAK PATRICK. PT ARRIVED UNIT IN BED. INITIAL VSS, AAOX4, UNSTEADY GAIT, BUT PT WAS ABLE TO WALK TO BED. PIV LFA 20G, PATENT. SCAR ON ABDOMEN, PT STATES IS FROM A PREVIOUS SURGERY. R/L APPEARS DRY, REDDENED, SCALY AND EDEMATOUS. PT APPEARS SOB. O2SAT 94 ON 3L NC. TELE ON. FREQUENT BUT NON-PRODUCTIVE COUGHS, PT DENEIS ANY CHEST PAIN AT THIS TIME. PT IS A GOOD HX, ADMISIION ASSESSMENT COMPLETED. PT DENIES ANY FURTHER NEED FOR COMFORT CARE. WILL CTM. CL IN REACH, BED IN LOW, SR UP X2.
[2019-01-14 00:27] VITALS: BP 126/45; BMI 40.1
[2019-01-14 04:00] VITALS: BP 112/55
[2019-01-14 06:58] LABS: CALCIUM 8.6 mg/dL (8.5-10.1); CARBON DIOXIDE 24.6 mmol/L (21.0-32.0); CHLORIDE - SERUM 100 mmol/L (98-107); CKMB 1.1 U/L (0.0-3.6); CREATINE KINASE 127 UL (21-232); CREATININE - SERUM 1.2 mg/dL (0.6-1.3); POTASSIUM - SERUM 4.1 mmol/L (3.5-5.1); PRO BNP 4043 pg/mL (0-125); SODIUM 138 mmol/L (136-145); UREA NITROGEN 33 mg/dL (7-18); eGFR NON AFRICAN AMERICAN 63 mL/min (90-120)
[2019-01-14 06:59] LABS: CALC OSMOLALITY 290 mosm/kg (275-300); GLUCOSE 242 mg/dL (74-106); TROPONIN-I 0.129 ng/mL (0.000-0.060)
[2019-01-14 07:29] LABS: BASOPHILS 0.1 % (0-2); EOSINOPHILS 0 % (0-7); HEMATOCRIT 35.4 % (42.0-54.0); HEMOGLOBIN 11.5 g/dL (13.5-17.5); IMMATURE GRANULOCYTES 1.7 % (0-5); LYMPHOCYTES 3.9 % (15-50); MCH 28.8 pg (26.0-34.0); MCHC 32.5 g/dL (31.0-37.0); MCV 88.5 fL (80.0-100.0); MEAN PLATELET VOLUME 11.9 fL (7.4-10.4); MONOCYTES 2.7 % (2-11); NEUTROPHILS 91.6 % (40-80); PLATELET COUNT 125 10x3/uL (130-400); RDW 15.4 % (11.5-14.5); WBC 8.7 10x3/uL (4.8-10.8)
--- NOTE | 2019-01-14 07:34 | NUR ---
REPORT RECEIVED. WILL CONTINUE WITH POC. PT CURRENTLY LYING SEMI FOWLERS. CALL LIGHT W/I REACH. RR EVEN AND UNLABORED ON 2L 02. L. FOR PIV IS SALINE LOCKED. PT IS AAO AND UP WITH ASSIST. PT DENIES ANY NEEDS AT THIS TIME. WILL CTM. NO S/S OF DISTRESS NOTED.
[2019-01-14 08:45] VITALS: BP 125/88
--- NOTE | 2019-01-14 10:19 | NUR ---
PT HAD EPISODE OF URINARY INCONTINENCE. CLEANED PT AND APPLIED NEW LINEN. PT DENIES ANY NEEDS. WILL CTM.
[2019-01-14 11:33] VITALS: BP 126/51
[2019-01-14 12:03] VITALS: Ht 175.3 cm; Wt 112.3 kg
[2019-01-14 15:59] VITALS: BP 127/44
--- NOTE | 2019-01-14 16:29 | NUR ---
I have reviewed this patient and I concur with the Shift Assessment completed by the Licensed Practical Nurse today this shift.
--- NOTE | 2019-01-14 19:25 | NUR ---
EVENING ROUNDS COMPLETED. AAOX4, VSS WITH HR 123. PT STATES HE FEELS JUST FINE. PT ON TELEMETRY. ON NC, O2 2L. R/L LE APPEARS CRUSTY AND REDDENED. PT DENIES ANY NEEDS FOR PAIN. WILL CPOC. CL IN REACH, BED IN LOW, SR UP X2.
--- NOTE | 2019-01-14 19:41 | NUR ---
PT C/O OF FREQUENT NON-PRODUCTIVE COUGHS. STATES "I CAN'T SEEM TO CATCH MY BREATH COUGHING ALL THE TIME." TESSALON 200MG, 1 TAB GIVEN AT THIS TIME. PT VOICED THANKS. WILL CTM.
[2019-01-14 20:00] VITALS: BP 96/53
--- NOTE | 2019-01-14 21:20 | NUR ---
PT HR HAS BEEN IN HIGH 160'S AND LOW 140'S. CALLED TARAS SCHWARTZ. LANA STATES TO CALL CARDIOLOGY. PAGED CARDIOLOGY. NO RESPONSE @ THIS TIME. WILL CTM PT. PT STATES HE FEELS GOOD AT THIS TIME. DENIES ANY DISCOMFORT OR PAIN.
--- NOTE | 2019-01-14 21:40 | NUR ---
DR. ORTIZ, CARDIOLOGY, ORDERED CARDIZEM 125MG/125ML @5MLS/HR. CARDIZEM INFUSING CURRENTLY. PT DENEIS ANY FURTHER NEEDS AT THIS TIME. HR STILL IN THE 140'S. WILL CTM.
[2019-01-15] VITALS: BP 104/64
[2019-01-15 04:00] VITALS: BP 112/70
--- NOTE | 2019-01-15 04:07 | NUR ---
PT CURRENTLY 87 SINUS RYTHM ON TELE. PT STATES HE STILL HAS OCCASIONAL EPISODES OF COUGHS, BUT THE TESSALON HELPED A LITTLE. WILL CTM. CL IN REACH, BED IN LOW, SR UP X2.
[2019-01-15 05:56] LABS: BASOPHILS 0.2 % (0-2); EOSINOPHILS 0 % (0-7); HEMATOCRIT 35.5 % (42.0-54.0); HEMOGLOBIN 11.4 g/dL (13.5-17.5); IMMATURE GRANULOCYTES 4.9 % (0-5); LYMPHOCYTES 5.3 % (15-50); MCH 28.3 pg (26.0-34.0); MCHC 32.1 g/dL (31.0-37.0); MCV 88.1 fL (80.0-100.0); MEAN PLATELET VOLUME 11.3 fL (7.4-10.4); MONOCYTES 8.3 % (2-11); NEUTROPHILS 81.3 % (40-80); RBC 4.03 10x6/uL (4.20-6.10); RDW 15.5 % (11.5-14.5)
[2019-01-15 05:57] LABS: PLATELET COUNT 194 10x3/uL (130-400); WBC 11.1 10x3/uL (4.8-10.8)
[2019-01-15 06:42] LABS: ALBUMIN 2.2 g/dL (3.4-5.0); BILIRUBIN - TOTAL 0.37 mg/dL (0.2-1.3); CALCIUM 8.7 mg/dL (8.5-10.1); CARBON DIOXIDE 30.1 mmol/L (21.0-32.0); CREATININE - SERUM 1.4 mg/dL (0.6-1.3); MAGNESIUM - SERUM 2.2 mg/dL (1.8-2.4); PHOSPHOROUS 3.7 mg/dL (2.5-4.9)
[2019-01-15 06:44] LABS: ANION GAP 10.3 mmol/L (8-16); POTASSIUM - SERUM 3.4 mmol/L (3.5-5.1); TROPONIN-I 0.168 ng/mL (0.000-0.060)
[2019-01-15 06:46] LABS: APTT 34.4 SECONDS (22.8-39.4)
[2019-01-15 06:47] LABS: INR 1.28 (0.85-1.17); PROTIME 15.5 SECONDS (11.6-15.0)
[2019-01-15 06:59] LABS: D-DIMER-QUANTITATIVE 4.73 ug/mLFEU (0.20-0.54)
--- NOTE | 2019-01-15 07:37 | NUR ---
ROUNDING DONE WITH PATIENT SEEN WITH GLASSES ON. LEFT FA IV IS INFILTRATED. CARDIZEM DRIP STOPPED. ON HEART MONITOR SHOWING SR, HR 68. ON 2L PER NC. ON EP, K+ IS 3.4, WILL COVER WITH ORAL SUPPLEMENTS. BILATEAL LOWER LEGS SEEN WITH CELLULITIS. WILL MONITOR. FRESH WATER GIVEN PER REQUEST.
--- NOTE | 2019-01-15 07:39 | NUR ---
PT IV INFILTRATED. RESITED A NEW PIV R.FA 22 X1 STICK. PT TOLERATES WELL. ASSIST PT TO THE BATHROOM. NOTIFIED INCOMING NURSE TO RESTART CARDIZEM DRIP.
[2019-01-15 09:06] VITALS: BP 103/61
--- NOTE | 2019-01-15 09:13 | NUR ---
ORAL POTASSIUM 40 MEQ GIVEN PER PROTOCOL.
--- NOTE | 2019-01-15 10:17 | NUR ---
URINE SENT TO LAB ORDERED.
--- NOTE | 2019-01-15 10:28 | NUR ---
PATIENT IS USING THE INCONT. WIPES TO CLEAN HIMSELF PAST BOWEL MOVEMENTS. I ASKED THAT HE PLEASE NOT FLUSH THEM EVEN THOUGH IT SAYS THEY ARE FLUSHABLE. HE REPLIES, "DAMN IT, I NEED THEM". I TOLD HIM THAT HE CAN USE THEM BUT JUST THROW THE WIPES INTO THE TRASH. HE REPLIED, "WITH SHIT ON THEM"? I SAID YES.
[2019-01-15 12:20] VITALS: BP 115/58
--- NOTE | 2019-01-15 12:23 | NUR ---
UNABLE TO OBTAIN RESP. SPUTUM PATIENT IS UNABLE TO COUGH ANYTHING UP.
--- NOTE | 2019-01-15 13:00 | NUR ---
PATIENT SITTING ON SIDE OF BED PAST SHOWER USE. WANTS LARGE SHOWER CHAIR OUT OF SHOWER, DONE.
--- NOTE | 2019-01-15 13:09 | MORECARE ---
CASE MANAGEMENT DISCHARGE SUMMARY PATIENT: LIZETH RUIZ UNIT: [id number] ADM DATE: 01/13/19 AGE: 73 : 45 SEX: M ROOM/BED: D.2104 AUTHOR: ANDREW PRASAD PHYSICIAN: REFERRING PHYSICIAN: CARMEN GUIDRY MD DATE OF SERVICE: 01/15/19 Discharge Plan Patient Name: LIZETH RUIZ [facility] [facility] 1945 Planned Disposition: Home Anticipated Discharge Date: 01/17/19 Discharge Date: Expected LOS: 4 Initial Reviewer: [email or web address] Initial Review Date: 01/15/2019 Generated: 01/15/19 2:09 pm Patient Name: LIZETH RUIZ Page 72908 at 1309 All edits/amendments must be made on the electronic document DICTATION DATE: 01/15/19 1308 MARINE FITTER: LEMUEL 01/15/19 1308 RPT#: [id number] DC DATE: STATUS: ADM IN [facility] [address] [place] [address] END OF REPORT
--- NOTE | 2019-01-15 13:24 | MORECARE ---
CASE MANAGEMENT DISCHARGE SUMMARY PATIENT: LIZETH RUIZ UNIT: [id number] ADM DATE: 01/13/19 AGE: 73 : 45 SEX: M ROOM/BED: D.2104 AUTHOR: ANDREW PRASAD PHYSICIAN: REFERRING PHYSICIAN: CARMEN GUIDRY MD DATE OF SERVICE: 01/15/19 Discharge Plan Patient Name: [facility]ZETH [facility]UI[facility] [facility] 1945 Planned Disposition: Home Anticipated Discharge Date: 01/17/19 Discharge Date: Expected LOS: 4 Initial Reviewer: [email or web address] Initial Review Date: 01/15/2019 Generated: 01/15/19 2:24 pm DCPIA - Discharge Planning Initial Assessment Updated by [email or web address]: Mamadou Monson on 01/15/19 1:22 pm * Is the patient Alert and Oriented? Yes * How many steps to enter\exit or inside your home? ELEVATOR * PCP DR. FIGUEROA * Pharmacy [facility] * Preadmission Environment Home Alone * ADLs Independent * Equipment None * Other Equipment NO MEDICAL EQUIPMENT PROVIDER PREFERENCE * List name and contact numbers for known caregivers / representatives who currently or will assist patient after discharge: EMMY RUIZ, BROTHER, * Verbal permission to speak to the caregivers and representatives has been obtained from the patient. N/A * Community resources currently utilized None * Please name any agencies selected above. NONE * Additional services required to return to the preadmission environment? No * Can the patient safely return to the preadmission environment? Yes * Has this patient been hospitalized within the prior 30 days at any hospital? No Last DP export: 01/15/19 12:09 p Patient Name: LIZETH RUIZ Page 35235 at 1324 All edits/amendments must be made on the electronic document DICTATION DATE: 01/15/191322 SAUTE CHEF: LEMUEL 01/15/19 132 RPT#: [id number] DC DATE: STATUS: ADM IN [facility] [address] [place] [address] END OF REPORT
--- NOTE | 2019-01-15 13:32 | MORECARE ---
CASE MANAGEMENT DISCHARGE SUMMARY PATIENT: LIZETH RUIZ UNIT: [id number] ADM DATE: 01/13/19 AGE: 73 : 45 SEX: M ROOM/BED: D.2104 AUTHOR: SHANICE,DOC PHYSICIAN: REFERRING PHYSICIAN: CARMEN GUIDRY MD DATE OF SERVICE: 01/15/19 Discharge Plan Patient Name: LIZETH RUIZ Facility: [facility]:[place] : 1945 Planned Disposition: Home Anticipated Discharge Date: 01/17/19 Discharge Date: Expected LOS: 4 Initial Reviewer: [id number] Initial Review Date: 01/15/2019 Generated: 01/15/19 2:31 pm Comments DCP- Discharge Planning Updated by [id number]: Mamadou Monson on 01/15/19 12:[address] Patient Name: LIZETH RUIZ Admission Status: ER Accout number: [id number] Admission Date: 01-13-2019 : 1945 Admission Diagnosis: Attending: HILARIO GUIDRY Current LOS: 2 Anticipated DC Date: 01-17-2019 Planned Disposition: Home Primary Insurance: [facility] MEDICARE SOLUTIONS Discharge Planning Comments: CM MET WITH PT IN ROOM TO DISCUSS DISCHARGE PLANNING AND NEEDS. PT REPORTS LIVING AT HOME INDEPENDENTLY AND ALONE AT THE [facility]. PT HAS ELEVATOR ACCESS TO HIS APARTMENT. PT STILL DRIVES HIS CAR INDEPENDENTLY. PT HAS NO MEDICAL EQUIPMENT AND NO OUTSIDE SERVICES ASSISTING IN THE HOME. CM DISCUSSED AVAILABILITY OF HOME HEALTH, REHAB SERVICES AND MEDICAL EQUIPMENT. PT DENIES DISCHARGE NEEDS. PT DENIES DISCHARGE NEEDS, PLANS TO DISCHARGE HOME ALONE. CM TO CONTINUE TO FOLLOW AND ASSIST IF NEEDED. Machine Repair Person: Mamadou Monson DCPIA - Discharge Planning Initial Assessment Updated by [id number]: Mamadou Monson on 01/15/19 1:22 pm * Is the patient Alert and Oriented? Yes * How many steps to enter\exit or inside your home? ELEVATOR * PCP DR. FIGUEROA * Pharmacy [facility] * Preadmission Environment Home Alone * ADLs Independent * Equipment None * Other Equipment NO MEDICAL EQUIPMENT PROVIDER PREFERENCE * List name and contact numbers for known caregivers / representatives who currently or will assist patient after discharge: EMMY RUIZ, BROTHER, * Verbal permission to speak to the caregivers and representatives has been obtained from the patient. N/A * Community resources currently utilized None * Please name any agencies selected above. NONE * Additional services required to return to the preadmission environment? No * Can the patient safely return to the preadmission environment? Yes * Has this patient been hospitalized within the prior 30 days at any hospital? No Last DP export: 01/15/19 12:24 p Patient Name: LIZETH RUIZ Page [id number] at 1332 All edits/amendments must be made on the electronic document DICTATION DATE: 01/15/19 1331 MANAGER SHOP: LEMUEL 01/15/19 1331 RPT#: [id number] DC DATE: STATUS: ADM IN [facility] [address] [place] [address] END OF REPORT
--- NOTE | 2019-01-15 14:05 | NUR ---
RE-DRAW OF POTASSIUM WITH RESULTS OF 3.8.
--- NOTE | 2019-01-15 14:36 | NUR ---
20 G TO RIGHT FA WITH ONE STICK.
--- NOTE | 2019-01-15 14:50 | NUR ---
TO MRI VIA WHEELCHAIR.
[2019-01-15 16:09] VITALS: BP 116/57
--- NOTE | 2019-01-15 18:26 | NUR ---
ASSSITED PATIENT BACK TO BED FOR THE EVENING. CALL LIGHT AND CELL PHONE SIDE.
--- NOTE | 2019-01-15 19:39 | NUR ---
PATIENT SITTING UP IN BED. NO COMPLAINTS AT THIS TIME. NO DISTRESS NOTED.
[2019-01-15 20:00] VITALS: BP 125/57
[2019-01-16 00:03] VITALS: BP 116/64
--- NOTE | 2019-01-16 00:14 | NUR ---
PATIENT LAYING IN BED. EYES CLOSED, CHEST RISING AND FALLING. NO DISTRESS NOTED.
--- NOTE | 2019-01-16 02:01 | NUR ---
I have reviewed this patient and I concur with the Shift Assessment completed by the Licensed Practical Nurse today this shift.
[2019-01-16 04:00] VITALS: BP 117/50
[2019-01-16 06:25] LABS: BASOPHILS 0.1 % (0-2); EOSINOPHILS 0.4 % (0-7); HEMATOCRIT 34.8 % (42.0-54.0); HEMOGLOBIN 10.9 g/dL (13.5-17.5); IMMATURE GRANULOCYTES 5.2 % (0-5); LYMPHOCYTES 5.5 % (15-50); MCH 28.2 pg (26.0-34.0); MCHC 31.3 g/dL (31.0-37.0); MCV 89.9 fL (80.0-100.0); MEAN PLATELET VOLUME 11.9 fL (7.4-10.4); MONOCYTES 3.6 % (2-11); NEUTROPHILS 85.2 % (40-80); PLATELET COUNT 185 10x3/uL (130-400); RBC 3.87 10x6/uL (4.20-6.10); RDW 15.7 % (11.5-14.5)
--- NOTE | 2019-01-16 06:33 | NUR ---
PATIENT LAYING IN BED. NO COMPLAINTS AT THIS TIME. NO DISTRESS NOTED.
[2019-01-16 06:35] LABS: WBC 7.8 10x3/uL (4.8-10.8)
[2019-01-16 06:52] LABS: ALBUMIN 2.2 g/dL (3.4-5.0); ANION GAP 10.7 mmol/L (8-16); BILIRUBIN - TOTAL 0.36 mg/dL (0.2-1.3); CALCIUM 8.5 mg/dL (8.5-10.1); CREATININE - SERUM 1.2 mg/dL (0.6-1.3); POTASSIUM - SERUM 4.7 mmol/L (3.5-5.1); PROTEIN - SERUM 6.8 g/dL (6.4-8.2)
--- NOTE | 2019-01-16 07:35 | NUR ---
ASSESSMENT COMPLETE. IV TO R FA PATENT. CARDIZEM INFUSING AT 5 CC/HR VIA PUMP. SL TO R FA. BONE CRUSHER SHOWING SR 72 PER TECH. O2 2L NC IN USE. DENIES ANY NEEDS AT THIS TIME.
[2019-01-16 08:18] LABS: IMMUNOGLOBULIN A 202 mg/dL (61-437)
--- NOTE | 2019-01-16 09:01 | NUR ---
PT TIRED OF BEING CONNECTED TO THE IV SET THROUGH HIS R.SIDE. REQUESTING A NEW PIV. 20 GUAGE PIV INSERTED TO L.FA X1 ABBY, MELA INFUSING VIA L.FA. NO CURRENT NEEDS. WILL CTM.
--- NOTE | 2019-01-16 09:23 | NUR ---
Nutrition follow-up: Diet: ADA PO intake 100% of all meals Labs reviewe; glucose elevated possibly due to SoluMedrol in use Wt: 272# +BM RDN following.
[2019-01-16 09:37] VITALS: BP 129/54
[2019-01-16 11:03] LABS: ANION GAP 6.6 mmol/L (8-16); CALCIUM 8.5 mg/dL (8.5-10.1); CARBON DIOXIDE 33.8 mmol/L (21.0-32.0); CREATININE - SERUM 1.3 mg/dL (0.6-1.3); POTASSIUM - SERUM 4.4 mmol/L (3.5-5.1)
--- NOTE | 2019-01-16 11:35 | NUR ---
OFF FLOOR TO BUMBOATER VIA BED.
--- NOTE | 2019-01-16 12:36 | NUR ---
RETURNED TO ROOM FROM AQUACULTURAL WORKER SUPERVISOR. FEM STOP IN USE TO RIGHT GROIN. HAVING A FREQUENT NONPRODUCTIVE COUGH.
--- NOTE | 2019-01-16 13:26 | NUR ---
REMOVED SOME PRESSURE FROM R.GROIN FEMSTOP. PUNCTURE SITE CLEAN AND DRY NO S/S OF BLEEDING OR HEMATOMA NOTED. VSS AND STILL BEING MONITERED PER POST PROCEDURE POLICY. PERIPHERAL PULSES INTACT. PT REMAINS LYING FLAT IN BED AND DENIES ANY CURRENT PAIN OR NEEDS. CL IN REACH. WILL CTM.
--- NOTE | 2019-01-16 14:39 | NUR ---
REMOVED FEMSTOP AND NO S/S OF BLEEDING OR HEMATOMA NOTED. PLACED GUAZE WITH TEGADERM OVER PUNCTURE SITE. PT DENIES ANY CURRENT PAIN OR NEEDS AT THIS TIME. CL IN REACH. WILL CTM.
--- NOTE | 2019-01-16 16:18 | MORECARE ---
CASE MANAGEMENT DISCHARGE SUMMARY PATIENT: LIZETH RUIZ UNIT: [id number] ADM DATE: 01/13/19 AGE: 73 : 45 SEX: M ROOM/BED: D.2104 AUTHOR: SHANICE,DOC PHYSICIAN: REFERRING PHYSICIAN: CARMEN GUIDRY MD DATE OF SERVICE: 01/16/19 Discharge Plan Patient Name: LIZETH RUIZ Facility: [facility]:[place] : 1945 Planned Disposition: Home Anticipated Discharge Date: 01/16/19 Discharge Date: Expected LOS: 3 Initial Reviewer: [id number] Initial Review Date: 01/15/2019 Generated: 01/16/19 5:18 pm Comments DCP- Discharge Planning Updated by [id number]: Mamadou Monson on 01/15/19 12:[address] Patient Name: LIZETH RUIZ Admission Status: ER Accout number: [id number] Admission Date: 01-13-2019 : 1945 Admission Diagnosis: Attending: HILARIO GUIDRY Current LOS: 2 Anticipated DC Date: 01-17-2019 Planned Disposition: Home Primary Insurance: [facility] MEDICARE SOLUTIONS Discharge Planning Comments: CM MET WITH PT IN ROOM TO DISCUSS DISCHARGE PLANNING AND NEEDS. PT REPORTS LIVING AT HOME INDEPENDENTLY AND ALONE AT THE [facility]. PT HAS ELEVATOR ACCESS TO HIS APARTMENT. PT STILL DRIVES HIS CAR INDEPENDENTLY. PT HAS NO MEDICAL EQUIPMENT AND NO OUTSIDE SERVICES ASSISTING IN THE HOME. CM DISCUSSED AVAILABILITY OF HOME HEALTH, REHAB SERVICES AND MEDICAL EQUIPMENT. PT DENIES DISCHARGE NEEDS. PT DENIES DISCHARGE NEEDS, PLANS TO DISCHARGE HOME ALONE. CM TO CONTINUE TO FOLLOW AND ASSIST IF NEEDED. Tool Maker: Mamadou Monson DCPIA - Discharge Planning Initial Assessment Updated by [id number]: Mamadou Monson on 01/15/19 1:22 pm * Is the patient Alert and Oriented? Yes * How many steps to enter\exit or inside your home? ELEVATOR * PCP DR. FIGUEROA * Pharmacy [facility] * Preadmission Environment Home Alone * ADLs Independent * Equipment None * Other Equipment NO MEDICAL EQUIPMENT PROVIDER PREFERENCE * List name and contact numbers for known caregivers / representatives who currently or will assist patient after discharge: EMMY RUIZ, BROTHER, * Verbal permission to speak to the caregivers and representatives has been obtained from the patient. N/A * Community resources currently utilized None * Please name any agencies selected above. NONE * Additional services required to return to the preadmission environment? No * Can the patient safely return to the preadmission environment? Yes * Has this patient been hospitalized within the prior 30 days at any hospital? No Coverage Notice Reviewer: [email or web address] Glendy Monson Notice Issued Date-Time: 01/16/2019 16:05 Notice Type: IM Discharge Notice Notice Delivered To: Patient Relationship to Patient: Abstract Clerk Name: Delivery Method: HAND - Hand Delivered Tina Days: Prior Verbal Notification: Recipient Understood Notice: Yes Recipient Signature: Yes Med Rec Note Co-signed by Attending: Coverage Notice Comment: Last DP export: 01/15/19 12:31 p Patient Name: LIZETH RUIZ Page 44048 at 1618 All edits/amendments must be made on the electronic document DICTATION DATE: 01/16/191616 AEROSPACE ENGINEER: LEMUEL 01/16/191616 RPT#: [id number] DC DATE: STATUS: ADM IN [facility] [address] [place] [address] END OF REPORT
--- NOTE | 2019-01-16 16:31 | MORECARE ---
CASE MANAGEMENT DISCHARGE SUMMARY PATIENT: LIZTEH RUIZ UNIT: [id number] ADM DATE: 01/13/19 AGE: 73 : 45 SEX: M ROOM/BED: D.2104 AUTHOR: SHANICE,DOC PHYSICIAN: REFERRING PHYSICIAN: CARMEN GUIDRY MD DATE OF SERVICE: 01/16/19 Discharge Plan Patient Name: LIZETH RUIZ Facility: [facility]:[place] : 1945 Planned Disposition: Home Anticipated Discharge Date: 01/16/19 Discharge Date: Expected LOS: 3 Initial Reviewer: [email or web address] Initial Review Date: 01/15/2019 Generated: 01/16/19 5:31 pm Comments DCP- Discharge Planning Updated by [email or web address]: Mamadou Monson on 01/16/19 3:[address] Patient Name: LIZETH RUIZ Encounter No: [id number] : 1945 Primary Insurance: [facility] MEDICARE SOLUTIONS Anticipated DC Date: 01-16-2019 Planned Disposition: Home DCP follow-up note: CM MET WITH PT IN ROOM TO DISCUSS DISCHARGE NEEDS AND PLANNING. CM DISCUSSED AVAILABILITY OF HOME HEALTH, REHAB SERVICES AND MEDICAL EQUIPMENT. PT DENIES DISCHARGE NEEDS, REPORTS HE WILL CALL "SOMEONE" TO TRANSPORT HOME AT DISCHARGE. IMPORTANT MESSAGE FROM MEDICARE PROVIDED AND EXPLAINED. CM TO FOLLOW AND ASSIST NEEDED. JADA Oviedo DCP- Discharge Planning Updated by [id number]: Mamadou Monson on 01/15/19 12:[address] Patient Name: LIZETH RUIZ Admission Status: ER Accout number: [id number] Admission Date: 01-13-2019 : 1945 Admission Diagnosis: Attending: HILARIO GUIDRY Current LOS: 2 Anticipated DC Date: 01-17-2019 Planned Disposition: Home Primary Insurance: [facility] MEDICARE SOLUTIONS Discharge Planning Comments: CM MET WITH PT IN ROOM TO DISCUSS DISCHARGE PLANNING AND NEEDS. PT REPORTS LIVING AT HOME INDEPENDENTLY AND ALONE AT THE [facility]. PT HAS ELEVATOR ACCESS TO HIS APARTMENT. PT STILL DRIVES HIS CAR INDEPENDENTLY. PT HAS NO MEDICAL EQUIPMENT AND NO OUTSIDE SERVICES ASSISTING IN THE HOME. CM DISCUSSED AVAILABILITY OF HOME HEALTH, REHAB SERVICES AND MEDICAL EQUIPMENT. PT DENIES DISCHARGE NEEDS. PT DENIES DISCHARGE NEEDS, PLANS TO DISCHARGE HOME ALONE. CM TO CONTINUE TO FOLLOW AND ASSIST IF NEEDED. Fnp: Mamadou Monson DCPIA - Discharge Planning Initial Assessment Updated by [id number]: Mamadou Monson on 01/15/19 1:22 pm * Is the patient Alert and Oriented? Yes * How many steps to enter\\exit or inside your home? ELEVATOR * PCP DR. FIGUEROA * Pharmacy [facility] * Preadmission Environment Home Alone * ADLs Independent * Equipment None * Other Equipment NO MEDICAL EQUIPMENT PROVIDER PREFERENCE * List name and contact numbers for known caregivers / representatives who currently or will assist patient after discharge: EMMY RUIZ, BROTHER, * Verbal permission to speak to the caregivers and representatives has been obtained from the patient. N/A * Community resources currently utilized None * Please name any agencies selected above. NONE * Additional services required to return to the preadmission environment? No * Can the patient safely return to the preadmission environment? Yes * Has this patient been hospitalized within the prior 30 days at any hospital? No Coverage Notice Reviewer: [id number] - Mamadou Monson Notice Issued Date-Time: 01/16/2019 16:05 Notice Type: IM Discharge Notice Notice Delivered To: Patient Relationship to Patient: Legal Adviser Name: Delivery Method: HAND - Hand Delivered Tina Days: Prior Verbal Notification: Recipient Understood Notice: Yes Recipient Signature: Yes Med Rec Note Co-signed by Attending: Coverage Notice Comment: Last DP export: 01/16/19 3:18 p Patient Name: LIZETH RUIZ Page [id number] at 1631 All edits/amendments must be made on the electronic document DICTATION DATE: 01/16/19 1631 TOWN CLERK: LEMUEL 01/16/19 1631 RPT#: [id number] DC DATE: STATUS: ADM IN [facility] [address] [place] [address] END OF REPORT
[2019-01-16 18:07] LABS: ANA REFLEX - DIRECT Negative (Negative)
--- NOTE | 2019-01-16 18:10 | NUR ---
DENIES ANY NEEDS AT THIS TIME.
[2019-01-16 20:00] VITALS: BP 119/62
--- NOTE | 2019-01-16 20:01 | NUR ---
REPORT RECIEVED AND ROUNDING COMPLETE. PT LAYING IN BED WATCHING T.V PT HAS NO S/SX OF DISTRESS AND STATES HE HAS NO NEEDS AT THIS TIME. CALL LIGHT WITHIN REACH AND BED IN LOWEST POSITION.
[2019-01-16 20:33] LABS: APTT 29.3 SECONDS (22.8-39.4); INR 1.32 (0.85-1.17); PROTIME 15.9 SECONDS (11.6-15.0)
[2019-01-16 20:38] LABS: HEMATOCRIT 33.8 % (42.0-54.0); HEMOGLOBIN 10.8 g/dL (13.5-17.5); MCH 28.5 pg (26.0-34.0); MCV 89.2 fL (80.0-100.0); MEAN PLATELET VOLUME 11.1 fL (7.4-10.4); PLATELET COUNT 205 10x3/uL (130-400); RBC 3.79 10x6/uL (4.20-6.10); RDW 15.4 % (11.5-14.5); WBC 7.9 10x3/uL (4.8-10.8)
[2019-01-16 20:56] LABS: LYMPHOCYTES 5 % (15-50); MONOCYTES 1 % (2-11); NEUTROPHILS 91 % (40-80); PLATELET ESTIMATE NORMAL
[2019-01-17] VITALS (8 sets, daily range): BP systolic 122–133; BP diastolic 50–65
[2019-01-17 03:08] LABS: ANGIOTENSIN CONVERTING ENZYME 27 U/L (14-82); MYCOPLASMA PNEUMO IGG 118 U/mL (0-99)
[2019-01-17 05:18] LABS: BASOPHILS 0.1 % (0-2); EOSINOPHILS 0 % (0-7); HEMATOCRIT 33.7 % (42.0-54.0); HEMOGLOBIN 10.5 g/dL (13.5-17.5); IMMATURE GRANULOCYTES 7.1 % (0-5); LYMPHOCYTES 4.5 % (15-50); MCH 28.3 pg (26.0-34.0); MCHC 31.2 g/dL (31.0-37.0); MCV 90.8 fL (80.0-100.0); MEAN PLATELET VOLUME 11.3 fL (7.4-10.4); MONOCYTES 3.5 % (2-11); NEUTROPHILS 84.8 % (40-80); RBC 3.71 10x6/uL (4.20-6.10); RDW 15.4 % (11.5-14.5); WBC 8.3 10x3/uL (4.8-10.8)
[2019-01-17 05:29] LABS: PLATELET COUNT 160 10x3/uL (130-400)
[2019-01-17 05:36] LABS: ALBUMIN 2.1 g/dL (3.4-5.0); ALKALINE PHOSPHATASE 89 U/L (46-116); ALT (SGPT) 59 U/L (10-68); BILIRUBIN - TOTAL 0.33 mg/dL (0.2-1.3); CALCIUM 8.4 mg/dL (8.5-10.1); CARBON DIOXIDE 32.6 mmol/L (21.0-32.0); CHLORIDE - SERUM 106 mmol/L (98-107); MAGNESIUM - SERUM 2.2 mg/dL (1.8-2.4); POTASSIUM - SERUM 4.8 mmol/L (3.5-5.1); PROTEIN - SERUM 6.2 g/dL (6.4-8.2); SODIUM 141 mmol/L (136-145); UREA NITROGEN 31 mg/dL (7-18); eGFR NON AFRICAN AMERICAN 78 mL/min (90-120)
[2019-01-17 05:37] LABS: CALC OSMOLALITY 300 mosm/kg (275-300); GLUCOSE 331 mg/dL (74-106)
--- NOTE | 2019-01-17 07:33 | NUR ---
PT AWAKE AND ORIENTED. VERY IRRITATED THAT HE IS NPO BUT DOESN'T UNDERSTAND WHY. EXPLAINED TO THE PT THE REASON HE IS NPO, AND WHY HIS BLOOD SUGAR WAS ELEVATED. PT EXPRESSES RELIEF THAT HE HAS A BETTER GRASP OF WHAT IS GOING ON TODAY, NO OTHER CONCERNS/COMPLAINTS VOICED AT THIS TIME. CL IN REACH, SRX2.
--- NOTE | 2019-01-17 09:57 | NUR ---
I have reviewed this patient and I concur with the Shift Assessment completed by the Licensed Practical Nurse today this shift.
--- NOTE | 2019-01-17 10:39 | NUR ---
PT GONE FOR BRONCHOSCOPY
--- NOTE | 2019-01-17 10:58 | NUR ---
PT BACK IN ROOM. NOTHING TO EAT OR DRINK UNTIL 1200 PER NURSE WHO ASSISTED WITH BRONCH.
--- NOTE | 2019-01-17 12:10 | NUR ---
PT DRANK FULL GLASS OF WATER PRIOR TO EATING. TOLERATING WELL AT THIS TIME.
[2019-01-17 16:09] LABS: ANCA - ANTIMYELOPEROXIDASE <9.0 U/mL (0.0-9.0); ANCA - ANTIPROTEINASE 3 <3.5 U/mL (0.0-3.5); ANCA - ATYPICAL <1:20 titer (Neg:<1:20); ANCA - CYTOPLASMIC <1:20 titer (Neg:<1:20); ANCA - PERINUCLEAR <1:20 titer (Neg:<1:20)
--- NOTE | 2019-01-17 18:38 | NUR ---
PT ALERT/ORIENTED. NO PROBLEMS WITH MASTICATION OF FOOD POST EGD. PT IS PLEASANT, UP WITHOUT ASSIST OR ISSUE. NO COMPLAINTS/CONCERNS VOICED AT THIS TIME. //FRIENDS AT BEDSIDE. CL IN REACH, SRX2. IRON GOING THORUGH RIGHT WRIST I/V WITHOUT DIFFICULTY.
--- NOTE | 2019-01-17 18:40 | NUR ---
LAST NOTE ON WRONG PT, THIS PT IS A/OX4. NO COMPLAINTS/CONCERNS, PT UP IN CHIAR BY BED RELAXING. CL IN REACH, SRX2.
--- NOTE | 2019-01-17 19:30 | NUR ---
REPORT RECIEVED AND ROUNDING COMPLETE. PT LAYING IN BED WITH NC ON @ 2.5L. PT IS ALERT AND ORIENTED X4. PT WANTS TO KNOW WHAT THE RESULTS OF THE BRONCH HE HAD TODAY ARE. PT STATES THAT HE HAS TO HAVE MORE STENT PLACED BUT WANTS TO GO HOME AND COME BACK AND DO THEM AN OUT PATIENT. PT STATES HE HAS NO NEEDS AT THIS TIME. CALL LIGHT WITHIN REACH AND BED IN LOWEST POSITION.
[2019-01-18] VITALS: BP 134/60
--- NOTE | 2019-01-18 01:43 | NUR ---
I have reviewed this patient and I concur with the Shift Assessment completed by the Licensed Practical Nurse today this shift.
[2019-01-18 04:25] VITALS: BP 119/55
[2019-01-18 04:58] LABS: BASOPHILS 0.2 % (0-2); EOSINOPHILS 0 % (0-7); HEMOGLOBIN 10.9 g/dL (13.5-17.5); IMMATURE GRANULOCYTES 5.3 % (0-5); LYMPHOCYTES 4.6 % (15-50); MCH 28.5 pg (26.0-34.0); MCHC 31.1 g/dL (31.0-37.0); MCV 91.6 fL (80.0-100.0); MEAN PLATELET VOLUME 11.3 fL (7.4-10.4); MONOCYTES 6.3 % (2-11); NEUTROPHILS 83.6 % (40-80); PLATELET COUNT 176 10x3/uL (130-400); RBC 3.82 10x6/uL (4.20-6.10); RDW 15.3 % (11.5-14.5)
[2019-01-18 05:10] LABS: WBC 10.7 10x3/uL (4.8-10.8)
[2019-01-18 05:25] LABS: ALBUMIN 2.2 g/dL (3.4-5.0); ANION GAP 6.8 mmol/L (8-16); BILIRUBIN - TOTAL 0.33 mg/dL (0.2-1.3); CALCIUM 8.4 mg/dL (8.5-10.1); CARBON DIOXIDE 33.5 mmol/L (21.0-32.0); CREATININE - SERUM 1.1 mg/dL (0.6-1.3); MAGNESIUM - SERUM 2.1 mg/dL (1.8-2.4); POTASSIUM - SERUM 5.3 mmol/L (3.5-5.1); PROTEIN - SERUM 6.4 g/dL (6.4-8.2)
[2019-01-18 06:12] LABS: IGG SUBCLASS 1 310 mg/dL (248-810); IGG SUBCLASS 2 504 mg/dL (130-555); IGG SUBCLASS 3 70 mg/dL (15-102); IGG SUBCLASS 4 69 mg/dL (2-96); IMMUNOGLOBULIN G 928 mg/dL (700-1600)
--- NOTE | 2019-01-18 07:32 | NUR ---
PT AWAKE AND ORIENTED. ANXIOUS AND WANTS TO LEAVE TODAY, IRRITATED WITH DOCTORS FOR NOT COMING IN WHAT HE DEAMS A TIMELY MANNER. INFORMED PT OF WHY DOCTORS MAY ROUND SLIGHTLY LATER SOMETIMES. PT IS CURRENTLY PACIFIED. NO OTHER COMPLAINTS/CONCERNS VOICED AT THIS TIME. CL IN REACH, SRX2.
[2019-01-18 08:53] VITALS: BP 144/62
--- NOTE | 2019-01-18 10:31 | NUR ---
PT DOES NOT ACTUALLY NEED WOUND CARE CONSULT, LEGS ARE DISCOLORED AND SCALEY BUT NO ACTIVE OUWNDS. WOUND CARE DID NOT SEE.
--- NOTE | 2019-01-18 13:04 | NUR ---
I have reviewed this patient and I concur with the Shift Assessment completed by the Licensed Practical Nurse today this shift.
[2019-01-18 13:11] VITALS: BP 137/50
[2019-01-18 16:07] LABS: ACID FAST SMEAR Negative (()); AFB SPECIMEN PROCESSING Concentration (())
[2019-01-18 16:45] VITALS: BP 122/47
--- NOTE | 2019-01-18 18:06 | NUR ---
PT AWAKE AND ORIENTED. EXPRESSES MILD ANXIETY AT NOT KNOWING EVERYTHING THATS GOING ON IN GREAT DETAIL. TOLD PATIENT EVERTHING I WAS ABLE TOO TO AID HIS UNEASE. NO FURTHER COMPLAINTS AT THIS TIME. CL IN REACH, SRX2.
--- NOTE | 2019-01-18 19:22 | NUR ---
PT IN BED RESTING QUIETLY WITH EYES CLOSED. EVEN AND UNLABORED RESPIRATIONS AT THIS TIME.
[2019-01-18 20:00] VITALS: BP 144/66
[2019-01-19 00:30] VITALS: BP 148/65
[2019-01-19 03:53] LABS: BASOPHILS 0.1 % (0-2); EOSINOPHILS 0.1 % (0-7); HEMATOCRIT 34.4 % (42.0-54.0); HEMOGLOBIN 10.9 g/dL (13.5-17.5); IMMATURE GRANULOCYTES 7.8 % (0-5); LYMPHOCYTES 5.8 % (15-50); MCH 28.3 pg (26.0-34.0); MCHC 31.7 g/dL (31.0-37.0); MCV 89.4 fL (80.0-100.0); MEAN PLATELET VOLUME 10.7 fL (7.4-10.4); MONOCYTES 5.2 % (2-11); PLATELET COUNT 178 10x3/uL (130-400); RBC 3.85 10x6/uL (4.20-6.10); RDW 14.9 % (11.5-14.5); WBC 9.5 10x3/uL (4.8-10.8)
[2019-01-19 04:17] LABS: ALBUMIN 2.2 g/dL (3.4-5.0); ALKALINE PHOSPHATASE 91 U/L (46-116); ALT (SGPT) 54 U/L (10-68); CALC OSMOLALITY 290 mosm/kg (275-300); CALCIUM 8.4 mg/dL (8.5-10.1); CARBON DIOXIDE 32.3 mmol/L (21.0-32.0); CHLORIDE - SERUM 102 mmol/L (98-107); GLUCOSE 257 mg/dL (74-106); MAGNESIUM - SERUM 1.9 mg/dL (1.8-2.4); POTASSIUM - SERUM 4.9 mmol/L (3.5-5.1); PRO BNP 3058 pg/mL (0-125); PROTEIN - SERUM 5.9 g/dL (6.4-8.2); SODIUM 138 mmol/L (136-145); UREA NITROGEN 29 mg/dL (7-18); eGFR NON AFRICAN AMERICAN 78 mL/min (90-120)
[2019-01-19 04:30] VITALS: BP 130/55
--- NOTE | 2019-01-19 07:03 | NUR ---
PT IS AWAKE AND ORIENTED. HAS MANY QUESTIONS OVER WHATS GOING TO HAPPEN TODAY AND WANTS ALL THE ANSWERS RIGHT NOW. UNFORTUNATELY I DON'T HAVE THEM ALL AT THIS TIME. ANSWERED TO THE BEST OF MY KNOWLEDGE. HASMUKH GOFF, SRX2.
[2019-01-19 08:07] VITALS: BP 148/67
--- NOTE | 2019-01-19 09:00 | NUR ---
I have reviewed this patient and I concur with the Shift Assessment completed by the Licensed Practical Nurse today this shift.
[2019-01-19] MEDS ORDERED: AMIODARONE HCL200 MG PO (12:41)
[2019-01-19] MEDS ORDERED: PREDNISONE10 MG PO (12:42)
[2019-01-19] MEDS ORDERED: MUCINEX DM ER1 EAC1 PO (12:44)
[2019-01-19] MEDS ORDERED: PLAVIX75 MG PO ×2 (13:06→14:18)
--- NOTE | 2019-01-19 14:01 | MORECARE ---
CASE MANAGEMENT DISCHARGE SUMMARY PATIENT: LIZETH RUIZ UNIT: [id number] ADM DATE: 01/13/19 AGE: 73 : 45 SEX: M ROOM/BED: D.2104 AUTHOR: SHANICEDOC PHYSICIAN: REFERRING PHYSICIAN: CARMEN GUIDRY MD DATE OF SERVICE: 01/19/19 Discharge Plan Patient Name: LIZETH RUIZ Facility: [facility]:[place] : 1945 Planned Disposition: Home Anticipated Discharge Date: 01/16/19 Discharge Date: Expected LOS: 3 Initial Reviewer: [id number] Initial Review Date: 01/15/2019 Generated: 01/19/19 3:01 pm Comments DCP- Discharge Planning Updated by [id number]: Becky Carrera on 01/19/19 12:[address] Patient Name: LIZETH RUIZ Admission Status: ER Accout number: [id number] Admission Date: 01-13-2019 : 1945 Admission Diagnosis:COUGH Attending: HILARIO GUIDRY Current LOS: 6 Anticipated DC Date: 01-16-2019 Planned Disposition: Home Primary Insurance: [facility] MEDICARE SOLUTIONS Discharge Planning Comments: PT TO DC WITH NEBULIZER, PCF SIGNED FOR [facility] TO PROVIDE. SPOKE TO [facility]REST[facility] GEAR OPERATOR DELIVERY AND THEY WILL DELIVER TO PT HOME THIS AFTERNOON Crnp: Becky Carrera DCP- Discharge Planning Updated by [id number]: Mamadou Monson on 01/16/19 3:[address] Patient Name: LIZETH RUIZ Encounter No: [id number] : 1945 Primary Insurance: [facility] MEDICARE SOLUTIONS Anticipated DC Date: 01-16-2019 Planned Disposition: Home DCP follow-up note: CM MET WITH PT IN ROOM TO DISCUSS DISCHARGE NEEDS AND PLANNING. CM DISCUSSED AVAILABILITY OF HOME HEALTH, REHAB SERVICES AND MEDICAL EQUIPMENT. PT DENIES DISCHARGE NEEDS, REPORTS HE WILL CALL "SOMEONE" TO TRANSPORT HOME AT DISCHARGE. IMPORTANT MESSAGE FROM MEDICARE PROVIDED AND EXPLAINED. CM TO FOLLOW AND ASSIST NEEDED. Mamadou Monson CASE MANAGEMENT DCP- Discharge Planning Updated by [id number]: Mamadou Monson on 01/15/19 12:[address] Patient Name: LIZETH RUIZ Admission Status: ER Accout number: [id number] Admission Date: 01-13-2019 : 1945 Admission Diagnosis: Attending: HILARIO GUIDRY Current LOS: 2 Anticipated DC Date: 01-17-2019 Planned Disposition: Home Primary Insurance: [facility] MEDICARE SOLUTIONS Discharge Planning Comments: CM MET WITH PT IN ROOM TO DISCUSS DISCHARGE PLANNING AND NEEDS. PT REPORTS LIVING AT HOME INDEPENDENTLY AND ALONE AT THE [facility]. PT HAS ELEVATOR ACCESS TO HIS APARTMENT. PT STILL DRIVES HIS CAR INDEPENDENTLY. PT HAS NO MEDICAL EQUIPMENT AND NO OUTSIDE SERVICES ASSISTING IN THE HOME. CM DISCUSSED AVAILABILITY OF HOME HEALTH, REHAB SERVICES AND MEDICAL EQUIPMENT. PT DENIES DISCHARGE NEEDS. PT DENIES DISCHARGE NEEDS, PLANS TO DISCHARGE HOME ALONE. CM TO CONTINUE TO FOLLOW AND ASSIST IF NEEDED. Crnp: Mamaodu Monson DCPIA - Discharge Planning Initial Assessment Updated by [id number]: Mamadou Monson on 01/15/19 1:22 pm * Is the patient Alert and Oriented? Yes * How many steps to enter\\exit or inside your home? ELEVATOR * PCP DR. FIGUEROA * Pharmacy [facility] * Preadmission Environment Home Alone * ADLs Independent * Equipment None * Other Equipment NO MEDICAL EQUIPMENT PROVIDER PREFERENCE * List name and contact numbers for known caregivers / representatives who currently or will assist patient after discharge: EMMY RUIZ, BROTHER, * Verbal permission to speak to the caregivers and representatives has been obtained from the patient. N/A * Community resources currently utilized None * Please name any agencies selected above. NONE * Additional services required to return to the preadmission environment? No * Can the patient safely return to the preadmission environment? Yes * Has this patient been hospitalized within the prior 30 days at any hospital? No Coverage Notice Reviewer: [id number] - Mamadou Monson Notice Issued Date-Time: 01/16/2019 16:05 Notice Type: IM Discharge Notice Notice Delivered To: Patient Relationship to Patient: Plate Stacker Hand Name: Delivery Method: HAND - Hand Delivered Tina Days: Prior Verbal Notification: Recipient Understood Notice: Yes Recipient Signature: Yes Med Rec Note Co-signed by Attending: Coverage Notice Comment: Reviewer: [email or web address] Glendy Carrera Notice Issued Date-Time: 01/19/2019 13:30 Notice Type: IM Discharge Notice Notice Delivered To: Patient Relationship to Patient: Self Plate Stacker Hand Name: Delivery Method: HAND - Hand Delivered Tina Days: Prior Verbal Notification: Recipient Understood Notice: Yes Recipient Signature: Yes Med Rec Note Co-signed by Attending: Coverage Notice Comment: Reviewer: [id number] Glendy Carrera Notice Issued Date-Time: 01/19/2019 13:30 Notice Type: Patient Choice Letter Notice Delivered To: Patient Relationship to Patient: Self Plate Stacker Hand Name: Delivery Method: HAND - Hand Delivered Tina Days: Prior Verbal Notification: Recipient Understood Notice: Yes Recipient Signature: Yes Med Rec Note Co-signed by Attending: Coverage Notice Comment: Last DP export: 01/16/19 3:31 p Patient Name: LIZETH RUIZ Page [id number] at 1401 All edits/amendments must be made on the electronic document DICTATION DATE: 01/19/191400 BUSINESS PROCESS MODELER: LEMUEL 01/19/19 140 RPT#: [id number] DC DATE: STATUS: ADM IN [facility] [address] [place] [address] END OF REPORT
[2019-01-19 14:07] LABS: FUNGAL - ASP FLAVUS Negative (Neg:<1:1); FUNGAL - ASP NIGER Negative (Neg:<1:1); FUNGAL - ASPER FUMIGATUS Negative (Neg:<1:1)
[2019-01-19] MEDS ORDERED: OMNICEF300 MG PO (14:14)
[2019-01-19] MEDS ORDERED: TESSALON PERLE100 MG PO (14:15)
[2019-01-19] MEDS ORDERED: ATROVENT 0.02%2.5 ML UPD (14:16)
[2019-01-19] MEDS ORDERED: FLUTICASONE PRO16 GM NASAL (14:16)
[2019-01-19] MEDS ORDERED: DOXYCYCLINE HY100 M2 PO (14:25)
--- NOTE | 2019-01-19 14:43 | NUR ---
PT ESCORTED OUT VIA WHELCHAIR TO [facility]. N COMPLAINTS OR CONCERNS
--- NOTE | 2019-01-20 07:43 | MORECARE ---
CASE MANAGEMENT DISCHARGE SUMMARY PATIENT: LIZETH RUIZ UNIT: [id number] ADM DATE: 01/13/19 AGE: 73 : [birth year] SEX: M ROOM/BED: D.2104 AUTHOR: ANDREW PRASAD PHYSICIAN: REFERRING PHYSICIAN: CARMEN GUIDRY MD DATE OF SERVICE: 01/20/19 Discharge Plan Patient Name: LIZETH RUIZ Facility: [facility]:[place] : 1945 Planned Disposition: Home Anticipated Discharge Date: 01/19/19 Discharge Date: 01/19/2019 Expected LOS: 6 Initial Reviewer: [email or web address] Initial Review Date: 01/15/2019 Generated: 01/20/19 8:43 am Comments DCP- Discharge Planning Updated by [id number]: Becky Carrera on 01/19/19 12:[address] Patient Name: LIZETH RUIZ Admission Status: ER Accout number: [id number] Admission Date: 01-13-2019 : 1945 Admission Diagnosis:COUGH Attending: HILARIO GUIDRY Current LOS: 6 Anticipated DC Date: 01-16-2019 Planned Disposition: Home Primary Insurance: [facility] MEDICARE SOLUTIONS Discharge Planning Comments: PT TO DC WITH NEBULIZER, PCF SIGNED FOR [facility] TO PROVIDE. SPOKE TO DRYING MACHINE OPERATOR DELIVERY AND THEY WILL DELIVER TO PT HOME THIS AFTERNOON Flat Folder: Becky Carrera DCP- Discharge Planning Updated by [email or web address]: Mamadou Monson on 01/16/19 3:[address] Patient Name: LIZETH RUIZ Encounter No: [id number] : 1945 Primary Insurance: [facility] MEDICARE SOLUTIONS Anticipated DC Date: 01-16-2019 Planned Disposition: Home DCP follow-up note: CM MET WITH PT IN ROOM TO DISCUSS DISCHARGE NEEDS AND PLANNING. CM DISCUSSED AVAILABILITY OF HOME HEALTH, REHAB SERVICES AND MEDICAL EQUIPMENT. PT DENIES DISCHARGE NEEDS, REPORTS HE WILL CALL "SOMEONE" TO TRANSPORT HOME AT DISCHARGE. IMPORTANT MESSAGE FROM MEDICARE PROVIDED AND EXPLAINED. CM TO FOLLOW AND ASSIST NEEDED. Mamadou Monson CASE FLO DCP- Discharge Planning Updated by [email or web address]: Mamadou Monson on 01/15/19 12:[address] Patient Name: LIZETH RUIZ Admission Status: ER Accout number: [id number] Admission Date: 01-13-2019 : 1945 Admission Diagnosis: Attending: HILARIO GUIDRY Current LOS: 2 Anticipated DC Date: 01-17-2019 Planned Disposition: Home Primary Insurance: [facility] MEDICARE SOLUTIONS Discharge Planning Comments: CM MET WITH PT IN ROOM TO DISCUSS DISCHARGE PLANNING AND NEEDS. PT REPORTS LIVING AT HOME INDEPENDENTLY AND ALONE AT THE [facility]. PT HAS ELEVATOR ACCESS TO HIS APARTMENT. PT STILL DRIVES HIS CAR INDEPENDENTLY. PT HAS NO MEDICAL EQUIPMENT AND NO OUTSIDE SERVICES ASSISTING IN THE HOME. CM DISCUSSED AVAILABILITY OF HOME HEALTH, REHAB SERVICES AND MEDICAL EQUIPMENT. PT DENIES DISCHARGE NEEDS. PT DENIES DISCHARGE NEEDS, PLANS TO DISCHARGE HOME ALONE. CM TO CONTINUE TO FOLLOW AND ASSIST IF NEEDED. Flat Folder: Mamadou Monson DCPIA - Discharge Planning Initial Assessment Updated by [id number]: Mamadou Monson on 01/15/19 1:22 pm * Is the patient Alert and Oriented? Yes * How many steps to enter\\exit or inside your home? ELEVATOR * PCP DR. FIGUEROA * Pharmacy [facility] * Preadmission Environment Home Alone * ADLs Independent * Equipment None * Other Equipment NO MEDICAL EQUIPMENT PROVIDER PREFERENCE * List name and contact numbers for known caregivers / representatives who currently or will assist patient after discharge: EMMY RUIZ, BROTHER, * Verbal permission to speak to the caregivers and representatives has been obtained from the patient. N/A * Community resources currently utilized None * Please name any agencies selected above. NONE * Additional services required to return to the preadmission environment? No * Can the patient safely return to the preadmission environment? Yes * Has this patient been hospitalized within the prior 30 days at any hospital? No Coverage Notice Reviewer: [id number] - Mamadou Monson Notice Issued Date-Time: 01/16/2019 16:05 Notice Type: IM Discharge Notice Notice Delivered To: Patient Relationship to Patient: Plan Nurse Name: Delivery Method: HAND - Hand Delivered Tina Days: Prior Verbal Notification: Recipient Understood Notice: Yes Recipient Signature: Yes Med Rec Note Co-signed by Attending: Coverage Notice Comment: Reviewer: [email or web address] Glendy Pena Carrera Notice Issued Date-Time: 01/19/2019 13:30 Notice Type: IM Discharge Notice Notice Delivered To: Patient Relationship to Patient: Self Plan Nurse Name: Delivery Method: HAND - Hand Delivered Tina Days: Prior Verbal Notification: Recipient Understood Notice: Yes Recipient Signature: Yes Med Rec Note Co-signed by Attending: Coverage Notice Comment: Reviewer: [id number] Glendy Carrera Notice Issued Date-Time: 01/19/2019 13:30 Notice Type: Patient Choice Letter Notice Delivered To: Patient Relationship to Patient: Self Plan Nurse Name: Delivery Method: HAND - Hand Delivered Tina Days: Prior Verbal Notification: Recipient Understood Notice: Yes Recipient Signature: Yes Med Rec Note Co-signed by Attending: Coverage Notice Comment: Last DP export: 01/19/19 1:01 p Patient Name: LIZETH RUIZ Page [id number] at 0743 All edits/amendments must be made on the electronic document DICTATION DATE: 01/20/1943 JUNIOR FINANCIAL ANALYST: LEMUEL 01/20/19 0743 RPT#: [id number] DC DATE:01/19/19 STATUS: DIS IN [facility] [address] [place] [address] END OF REPORT
--- NOTE | 2019-01-20 10:06 | EC ---
PATIENT:LIZETH RUIZ DATE OF SERVICE: 01/13/19 SEX: M MEDICAL RECORD: [id number] DATE OF : [birth year] LOCATION:D.M2 D.210 AGE OF PATIENT: 73 ADMISSION DATE: 01/13/19 REFERRING PHYSICIAN: INTERPRETING PHYSICIAN: ISRAEL ZEE MD ECHOCARDIOGRAM REPORT ECHO CHARGES 4 ECHO COMPLETE Date: 01/14/19 CLINICAL DIAGNOSIS: CHF ECHOCARDIOGRAPHIC MEASUREMENTS (adult normal given) AC root (d.<3.7cm) 3.4 cm LV Septum d (<1.2 cm> 1.3 cm Valve Excursion 1.8 cm LV Septum (systole) 1.6 cm Left Atria (s.<4.0cm> 4.0 cm LVPW d(<1.2cm) 1.7 cm RV (d.<2.3cm) 3.9 cm LVPW (sytole) 1.8 cm LV diastole(<5.6CM) 5.5 cm MV E-F(>70mm/sec) cm LV systole 4.2 cm LVOT Diameter 2.3 cm MV exc.(>10mm) cm Est.ejection fraction (50-75%) % DOPPLER: LVIT cm/sec A 126 cm/sec E 72.0 cm/sec LA cm/sec RVSP 20 mmHg LVOT 147 cm/sec AOP1/2T m/s Asc. Ao 150 cm/sec RVOT 151 cm/sec RA cm/sec PA 208 cm/sec AV Gradient Peak 9.00 mmHg AV Mean 4.28 mmHg AV Area 3.8 cm MV Gradient Peak 10.32mmHg MV Mean 4.62 mmHg MV Area cm COMMENTS: Broadcast Designer: 2 KRUPA LINDA Ballet Master/Mistress: 3 Dr. Figueredo TAPE# PACS Pericardial Effusion N DATE OF SERVICE: Adequate 2-D echo, color-flow and spectral Doppler, and M-mode. Mild LVH. LV internal dimension is normal. Wall motion is normal. EF is greater than or equal to 55%. Aortic valve is tricuspid. No evidence of stenosis on Doppler interrogation. Left atrium is upper limits of normal at 4.7 cm. Mitral valve shows no prolapse. Trace MR. Right-sided chambers are grossly normal. Trace TR. ECHOCARDIOGRAM REPORT [id number] LIZETH RUIZ TRANSINT:[id number] Voice Confirmation ID: [id number] DOCUMENT ID: [id number] ISRAEL ZEE MD at 1006 CC: [id number] DICTATION DATE: 01/14/19 1151 UC ARCHITECT: 01/14/19 1244 DIS IN 01/19/19 [facility] [address] [place] [id number]
--- NOTE | 2019-01-20 10:06 | CN ---
PATIENT NAME:LIZETH RUIZ MEDICAL RECORD: [id number] : [birth year] LOCATION:[place]sey D.2104 ADMIT DATE: 01/13/19 ACCOUNT: [id number] CONSULTING PHYSICIAN: ISRAEL ZEE MD REFERRING PHYSICIAN: CARMEN GUIDRY MD DATE OF CONSULTATION: 01/14/2019 HISTORY OF PRESENT ILLNESS: A 73-year-old gentleman with no known cardiovascular history. He has history of hypertension, hyperlipidemia, and reactive airway disease. Symptomology began, by his reports, about 5-7 days ago with progressive dyspnea on exertion. No wheezing, chest tightness, cough, or productive sputum. This progressed to the point he was complaining of chest tightness and pressure with chest heaviness. In the ER, he was found to have volume overload as well as elevated troponin and BNP. We are asked to see him concerning his cardiovascular status. PAST MEDICAL HISTORY: Includes; 1. History of hypertension. 2. Hyperlipidemia. 3. Reactive airway disease. ALLERGIES: None known. SOCIAL HISTORY: Nonsmoker and nondrinker. Typically, easily takes care of all his ADLs, working outside, etc. MEDICATIONS: Include amlodipine 10 mg p.o. daily, Mevacor 10 mg p.o. daily, niacin 500 at bedtime, aspirin 81 daily, Symbicort two puffs b.i.d., glipizide 5 b.i.d., and metformin 1 gram b.i.d. REVIEW OF SYSTEMS: The patient reports easy bruising but reports no swollen glands. The patient reports no fever, no night sweats, no significant weight gain, no significant weight loss. No significant exercise tolerance. The patient reports no dry eyes, no irritation, no vision change. Patient reports no difficulty hearing and no ear pain. Patient reports no frequent nose bleeds or nose and sinus problems. Patient reports on arm pain on exertion. No shortness of breath while lying down. No history of heart murmur. Patient reports no cough, no wheezing or coughing up blood. Patient reports no abdominal pain, no vomiting. Normal appetite. No diarrhea and not vomiting blood. No nausea and no constipation. Patient reports no incontinence. No difficulty urinating. No hematuria. No increased frequency. Patient reports no muscle aches. No weakness, no arthralgias, no back pain. No swelling of the extremities. Patient reports no abnormal mole, no jaundice, no rashes. Reports no loss of consciousness. No weakness and no numbness. No seizures, dizziness, or headaches. The patient reports no depression, no sleep disturbance, feeling safe in a relationship and no alcohol abuse. Patient reports on fatigue. Reports no runny nose or sinus pressure. No itching, no hives, and no frequent sneezing. PHYSICAL EXAMINATION: GENERAL: Pleasant gentleman, in no acute distress. VITAL SIGNS: Blood pressure 126/51. Pulse 90 and regular. HEENT: Normocephalic and atraumatic. NECK: No bruits are noted. HEART: Regular. Questionable S4 gallop. CONSULT REPORT [id number] LIZETH RUIZ LUNGS: Fair excursion with expiratory wheezes. ABDOMEN: Soft and nontender. EXTREMITIES: Pulses 2+ with no edema. NEUROLOGIC: Grossly intact. DIAGNOSTIC DATA: ECG with nonspecific ST-T changes. IMPRESSION: NSTEMI, question this is type 1 or type 2 with underlying respiratory. Certainly multiple risk factors for coronary artery disease. PLAN: Diagnostic angiography after pulmonary status improves. TRANSINT:[id number] Voice Confirmation ID: [id number] DOCUMENT ID: [id number] ISRAEL ZEE MD at 1006 CC: [id number] DICTATION DATE: 01/14/19 123 ELECTRIC BLANKET PACKER: 01/14/19 1249 DIS IN 01/19/19 [facility] [address] [place] [address]
--- NOTE | 2019-01-20 10:07 | OP ---
PATIENT NAME: LIZETH RUIZ MEDICAL RECORD: [id number] :45 LOCATION:D.M2 D.2104 ADMISSION DATE:01/13/19 SURGEON: ISRAEL ZEE MD DATE OF OPERATION: 01/16/2019 PROCEDURE: Left heart catheterization, selective coronary angiography, right femoral artery approach. CATHETERS: A 5-Ivorian sheath, 5/4 left and right Argenis, 5/4 pig. The procedure was well tolerated. The patient was returned to [place]. Sheath removed. ExoSeal device was placed. FINDINGS: Left ventriculography in 30-degree PHIPPS view: Normal wall motion, normal systolic function. CORONARY ANATOMY: LEFT MAIN: Left main is free of disease. LAD: Totally occluded, but fills well via left to left collaterals. CIRCUMFLEX: Circumflex has 2 sequential stenosis of 80%. RIGHT CORONARY ARTERY: Has a 90% stenosis in its distal third. PLAN: Intervention to the right. LAD at a later date. DESCRIPTION OF PROCEDURE: A 5-Ivorian sheath was exchanged for a 6-Ivorian sheath. A hockey-stick guiding catheter provided excellent guide catheter support followed by a 300 cm Whisper wire, which placed across the occluded right down this portion of the vessel. Pre-deployment balloon was a 3.0 x 15 mm Carl[place]. Stent deployed was a 3.0 x 15 mm Cobra coated stent up to 14 atmospheres for 45 seconds. Final angiography showed excellent resolution of a 90% stenosis, no significant residual. Heparin and Integrilin was used during the case. Sheath was closed with ExoSeal device. Plavix was loaded in the lab. Plan intervention to circumflex at later date. TRANSINT:[id number] Voice Confirmation ID: [id number] DOCUMENT ID: [id number] ISRAEL ZEE MD at 1007 CC: [id number] DICTATION DATE: 01/16/19 1220 SENIOR COST ESTIMATOR: 01/16/19 1407 DIS IN 01/19/19 [place] [id number] [place] [address]
[2019-01-20 13:10] LABS: FUNGUS STAIN Final report (())
[2019-01-24 09:15] LABS: IMMUNOGLOBULIN E 254 IU/mL (6-495)
[2019-01-24 17:08] LABS: FUNGUS CULTURE RESULT 1 Candida albicans (()); FUNGUS MYCOLOGY CULTURE Preliminary report (())
== END 2019-01-19 14:43 | disposition home or self-care (01) | DRG 853 ==
LOC: D.ER 17:59 → D.M2 22:20
PROVIDERS: Emergency Medicine; Family Medicine; Internal Medicine Interventional Cardiology; Internal Medicine Pulmonary Disease; ADMIT Emergency Medicine; ATTEND Emergency Medicine
PROC: B2111ZZ Fluoroscopy of Multiple Coronary Arteries using Low Osmolar Contrast (ICD-10-PCS; 2019-01-16)
PROC: B2151ZZ Fluoroscopy of Left Heart using Low Osmolar Contrast (ICD-10-PCS; 2019-01-16)
PROC: 02703DZ Dilation of Coronary Artery, One Artery with Intraluminal Device, Percutaneous Approach (ICD-10-PCS; principal; 2019-01-16 11:25)
PROC: 4A023N7 Measurement of Cardiac Sampling and Pressure, Left Heart, Percutaneous Approach (ICD-10-PCS; 2019-01-16 11:25)
PROC: 0B948ZZ Drainage of Right Upper Lobe Bronchus, Via Natural or Artificial Opening Endoscopic (ICD-10-PCS; 2019-01-17)
PROC: 0BDC8ZX Extraction of Right Upper Lung Lobe, Via Natural or Artificial Opening Endoscopic, Diagnostic (ICD-10-PCS; 2019-01-17)
DX: A41.9 Sepsis, unspecified organism (principal); I21.4 Non-ST elevation (NSTEMI) myocardial infarction; J96.01 Acute respiratory failure with hypoxia; J18.9 Pneumonia, unspecified organism; J45.901 Unspecified asthma with (acute) exacerbation; J47.0 Bronchiectasis with acute lower respiratory infection; J98.11 Atelectasis; E78.5 Hyperlipidemia, unspecified; E11.65 Type 2 diabetes mellitus with hyperglycemia; E11.40 Type 2 diabetes mellitus with diabetic neuropathy, unspecified; D50.9 Iron deficiency anemia, unspecified; E11.51 Type 2 diabetes mellitus with diabetic peripheral angiopathy without gangrene; I48.91 Unspecified atrial fibrillation; D69.6 Thrombocytopenia, unspecified; E11.22 Type 2 diabetes mellitus with diabetic chronic kidney disease; I12.9 Hypertensive chronic kidney disease with stage 1 through stage 4 chronic kidney disease, or unspecified chronic kidney disease; N18.9 Chronic kidney disease, unspecified; E87.6 Hypokalemia; E04.1 Nontoxic single thyroid nodule

== ENCOUNTER → 2019-02-04 08:20 | Outpatient (CLI) | payer MEDICARE, MEDICAID ==
[2019-01-14 12:03] VITALS: BMI 40.1
[~2019-02-04 08:20] MED LIST changes: +AMIODARONE HCL200 MG PO; +ATROVENT 0.02%2.5 ML UPD; +DOXYCYCLINE HY100 M2 PO; +FLUTICASONE PRO16 GM NASAL; +GLUCOPHAGE1000 MG PO; +MUCINEX DM ER1 EAC1 PO; +NORVASC10 MG PO; +OMNICEF300 MG PO; +PLAVIX75 MG PO; +PREDNISONE10 MG PO; +SYMBICORT 16010.2 GM INH; +TESSALON PERLE100 MG PO
== END | disposition home or self-care (01) ==
LOC: D.RAD 08:20
PROVIDERS: ATTEND Internal Medicine Pulmonary Disease
DX: J44.9 Chronic obstructive pulmonary disease, unspecified (principal)

== ENCOUNTER 2019-02-18 11:21 | Emergency (ER) | payer MEDICARE, MEDICAID ==
[~2019-02-18] VITALS: Ht 175.3 cm; Wt 120.5 kg
[2019-02-18 11:25] VITALS: Ht 175.3 cm; Wt 120.5 kg
[2019-02-18 14:15] LABS: APPEARANCE CLEAR (CLEAR); BILIRUBIN NEGATIVE (NEGATIVE); COLOR YELLOW (YELLOW); GLUCOSE NEGATIVE (NEGATIVE); KETONE NEGATIVE (NEGATIVE); NITRITE NEGATIVE (NEGATIVE); PROTEIN NEGATIVE (NEGATIVE); SPECIFIC GRAVITY 1.005 (1.005-1.020); UROBILINOGEN NORMAL (NORMAL)
[2019-02-18] MEDS ORDERED: ACETAMINOPHEN500 M1 PO (14:31)
[2019-02-18] MEDS ORDERED: CYCLOBENZAPRINE10 MG PO (14:31)
[2019-02-18 16:08] VITALS: BP 162/74
== END 2019-02-18 16:09 | disposition home or self-care (01) ==
LOC: D.ER 11:21
PROVIDERS: Family Medicine
DX: M54.5 Low back pain (principal)

== ENCOUNTER 2019-03-03 09:19 | Inpatient (IN) | payer MEDICARE, MEDICAID ==
[~2019-03-03] VITALS: Ht 175.3 cm; Wt 97.7 kg
--- NOTE | ~2019-03-03 | HEMODYNAMI ---
PATIENT:LIZETH RUIZ MEDICAL RECORD: [id number] : 45 LOCATION:D.MS [place] ADMISSION DATE: 03/03/19 Generatedon:03/07/201915:24 Patient name: LIZETH RUIZ Patient #: [id number] SSN: : 1945 Date of study: 03/07/2019 Page: Of Hemodynamic Procedure Report Patient Data Patient Demographics Procedure consent was obtained First Name: LIZETH Gender: Male Last Name: JOSEPH : 1945 [facility] Initial: CARMEN Age: 74 year(s) Patient #: [id number] Race: Unknown Additional ID: [id number] Contact details Address: [address] [place] [address] State: [place] City: [facility] Zip code: [address] Past Medical History Allergies: No known allergies Admission Admission Data Admission Date: 03/03/2019 Admission Time: 16:36 Room #: D.2216 Weight (lbs.): 216.05 Weight (kg.): 98 Lab Results Lab Result Date: 03/07/2019 Lab Result Time: 0:00 Biochemistry Name Units Result Min Max BUN mg/dl 13 --(--*-)-- 7 18 Creatinine mg/dl 1 --(--*-)-- 0.6 1.3 eGFR ml/min 78 *-(----)-- 90 120 NONAFRICAN CBC Name Units Result Min Max Hemoglobin g/dl 12 *-(----)-- 13.5 17.5 Procedure Procedure Types Cath Procedure Diagnostic Procedure Sedation Charges Moderate Sedation up to 15 minutes PCI Procedure Coronary Stent Coronary Stent Initial Procedure Description Procedure Date Procedure Date: 03/07/2019 Procedure Start Time: 15:01 Procedure End Time: 15:22 Procedure Staff Name Function Dameon Benavidez MD Performing Physician Mello Carrillo RT Otr Tanker Truck Driver Magalys Brooks RT Monitor Kya Edmondson RT Scrub Dany Madrigal RN Nurse Procedure Data Cath Procedure Fluoroscopy Diagnostic fluoroscopy Total fluoroscopy Time: 8.5 time: 8.5 min min Diagnostic fluoroscopy Total fluoroscopy dose: 821 dose: 821 mGy mGy Contrast Material Contrast Material Type Amount (ml) Isovue 300 55 Entry Location Entry Primary Successful Side Size Upsize Upsize Entry Closure Succes sful Closure Location (Fr) 1 (Fr) 2 (Fr) Remarks Device Remarks Femoral Right 6 Fr Exoseal artery Short Estimated blood loss: 10 ml Procedure Complications No complications Procedure Medications Medication Administration Route Dosage Plavix P.O. 75 mg Lidocaine 2% added to field 20 Heparin Flush Bag added to field 2 bags (1000units/500ml NS) 0.9% NaCl I.V. 100 ml/hr Versed I.V. 1 mg Fentanyl I.V. 50 mcg Versed I.V. 1 mg Fentanyl I.V. 50 mcg Heparin Bolus I.V. 4000 units Versed I.V. 1 mg Fentanyl I.V. 50 mcg Hemodynamics Rest HGB: 12 (g/dl) Pre Cath Intra NCS Post Cath Vital Signs Time Heart Resp SPO2 etCO2 NIBP Rhythm Pain Sedation Rate (ipm) (%) (mmHg) (mmHg) Status Level (bpm) 14:57:33 73 21 97 24.7 129/64(92) NSR 0 (11) 10(A) , No pain 15:03:55 68 49 93 13.5 122/56(89) NSR 0 (11) 9(A) , No pain 15:08:17 67 13 96 24 115/57(85) NSR 0 (11) 9(A) , No pain 15:12:33 71 15 97 24 107/55(77) NSR 0 (11) 9(A) , No pain 15:16:51 69 17 97 26.2 107/54(72) NSR 0 (11) 9(A) , No pain 15:21:07 68 17 98 30 109/56(82) NSR 0 (11) 10(A) , No pain Medications Time Medication Route Dose Verified Delivered Reason Notes Effectiveness by by 14:49:19 Plavix P.O. 75 mg Dameon Saenz for [facility] Carmen Madrigal RN antiplatelet therapy 14:49:28 Lidocaine 2% added 20ml Dameon Xiao for local to vial [facility] anesthetic field MD SHEN 14:49:34 Heparin Flush added 2 Dameon Xiao used for Bag to bags [facility] procedure (1000units/500ml field MD SHEN NS) 14:58:05 0.9% NaCl I.V. 100 Dameon Buffie Per physician ml/hr [facility] Carmen Madrigal RN, MD 14:59:18 Versed I.V. 1 mg Dameon Buffie for sedation [facility] Carmen Madrigal RN, MD 14:59:25 Fentanyl I.V. 50 Dameon Buffie for sedation mcg [facility] Carmen Madrigal RN, MD 15:02:21 Versed I.V. 1 mg Dameon Buffie for sedation [facility] Carmen Madrigal RN, MD 15:02:26 Fentanyl I.V. 50 Dameon Buffie for sedation mcg [facility] Carmen Madrigal RN, MD 15:04:22 Heparin Bolus I.V. 4000 Dameon Buffie for verifi ed units [facility] Carmen Madrigal RN anticoagulation with dr MD bill 15:11:41 Versed I.V. 1 mg Dameon Buffie for sedation [facility] Carmen Madrigal RN, MD 15:11:45 Fentanyl I.V. 50 Dameon Buffie for sedation mcg [facility] Carmen Madrigal RN, MD Procedure Log Time Note 14:25:27 Signed procedure consent form obtained from patient. 14:25:37 Mello Carrillo RT(R) sent for patient. Start room use. 14:35:28 Diagnostic Cath status Urgent 14:35:29 Time tracking: Regular hours (M-F 7:00 - 5:00) 14:35:34 Plan of Care:Hemodynamics will remain stable., Cardiac rhythm will remain stable., Comfort level will be maintained., Respiratory function will remain adequate., Patient/ family verbilizes understanding of procedure., Procedure tolerated without complication., Recovers from procedure without complications.. 14:45:32 Patient received from Med II to CCL 1 Alert and oriented. Tansferred to table in Supine position. 14:45:33 Warm blankets applied, and shiv hugger turned on for patient comfort. 14:45:34 Correct patient and procedure confirmed by team. 14:45:35 ECG and BP/O2 sat monitors applied to patient. 14:45:48 H&P Date Dictated: 03/06/2019 Within 30 days and on chart., H&P Addendum completed by physician on day of procedure. (MUST COMPLETE FOR ALL OUTPATIENTS). 14:45:49 Pre-procedure instructions explained to patient. 14:45:52 Family in waiting room. 14:46:01 Patient NPO since Midnight. 14:46:09 Patient allergic to No known allergies 14:46:12 Is the patient allergic to Iodine/contrast media? No. 14:46:22 Was the patient premedicated? Yes 14:46:38 Snore? Yes 14:46:50 Sleep apnea? No 14:46:53 Patient diabetic? Yes. 14:46:59 If diabetic: On Metformin? Yes 14:47:02 If on Metformin: Last Dose? 03/06/2019 14:47:11 Previous problem with sedation/anesthesia? No ? 14:47:14 Dentures? No ? 14:47:20 Patient pain scale 0/10 ?. 14:47:38 IV patent on arrival in right hand with 0.9% NaCl at [facility]. 14:47:42 Lab results completed and on chart. 14:48:12 Lab Result : Creatinine 1 mg/dl 14:48:12 Lab Result : BUN 13 mg/dl 14:48:12 Lab Result : Hemoglobin 12 g/dl 14:48:18 Right groin area was prepped with chlora-prep and draped in sterile fashion 14:48:19 Alarms reviewed by R. N. 14:48:20 Sharps counted by scrub and verified by R.N. 14:48:22 Physician arrived 14:48:45 2) 60-89 Mildly reduced kidney function, and other findings (as for stage 1) point to kidney disease. 14:49:19 Plavix 75 mg P.O. was administered by Dany Madrigal RN; for antiplatelet therapy; 14:49:19 Maximum allowable contrast does (3.7 X eGFR X 0.75)216 ml. 14:49:24 Sedation plan: IV Moderate Sedation Medication:Versed, Fentanyl 14:49:28 Lidocaine 2% 20ml vial added to field was administered by Dameon Benavidez MD; for local anesthetic; 14:49:34 Heparin Flush Bag (1000units/500ml NS) 2 bags added to field was administered by Dameon Benavidez MD; used for procedure; 14:51:25 Use device set Radial Dx or PCI 14:51:28 Use device set YAYO PCI 14:51:32 Tegaderm 4 x 4 (1626W) opened to sterile field. 14:51:33 ACIST Hand Control (15653) opened to sterile field. 14:51:34 ACIST Syringe (15688) opened to sterile field. 14:51:34 Medline Cath Pack ([id number]) opened to sterile field. 14:51:35 Bag Decanter (2002S) opened to sterile field. 14:51:35 ACIST Manifold (32732) opened to sterile field. 14:51:39 EMERALD Guide Wire (502-333) opened to sterile field. 14:51:40 INFLATOR Merit BasixCompak (XX1558) opened to sterile field. 14:51:43 SHEATH 6FR [place] (LZU768) opened to sterile field. 14:52:55 WHISPER 300cm guide wire ([id number]) opened to sterile field. 14:52:57 GUIDE 6FR EBU 3.5 catheter (MT6VBT53) opened to sterile field. 14:54:24 IV Extension Set opened to sterile field. 14:54:45 Patient Weight : 216.05 lbs 14:55:08 Lab Result : eGFR NONAFRICAN 78 ml/min 14:55:34 --------ALL STOP TIME OUT------ 14:55:34 Final Timeout: patient, procedure, and site verified with staff and physician. All members of the team are in agreement. 14:55:37 Right groin site verified by team. 14:55:41 Fire Safety Assessment: A--An alcohol-based skin anteseptic being used preoperatively., C--Open oxygen or nitrous oxide is being used., D--An ESU, laser, or fiber-optic light is being used. 14:55:45 Physical assessment completed. ASA score P 2 - A patient with mild systemic disease as per Dameon Benavidez MD. 14:58:05 0.9% NaCl 100 ml/hr I.V. was administered by Dany Madrigal RN; Per physician; 14:58:10 Vital chart was started 14:59:18 Versed 1 mg I.V. was administered by Dany Madrigal RN; for sedation; 14:59:25 Fentanyl 50 mcg I.V. was administered by Dany Madrigal RN; for sedation; 15:00:44 Procedure started. 15:00:44 Full Disclosure recording started 15:01:41 Local anesthetic to right femoral artery with Lidocaine 2% by Dameon Benavidez MD.INITIAL ACCESS ONLY 15:02:13 A 6 Fr Short sheath was inserted into the Right Femoral artery 15:02:21 Versed 1 mg I.V. was administered by Dany Madrigal RN; for sedation; 15:02:26 Fentanyl 50 mcg I.V. was administered by Dany Madrigal RN; for sedation; 15:04:09 LCA angiography performed. 15:04:22 Heparin Bolus 4000 units I.V. was administered by Dany Madrigal RN; for anticoagulation; verified with dr bill 15:05:34 6 Fr EBU3.5 guide catheter was inserted over the wire 15:10:59 CHOICE PT Extra Support J 300cm guide wire ([id number]) opened to sterile field. 15:11:10 Wire advanced across lesion. 15:11:41 Versed 1 mg I.V. was administered by Dany Madrigal RN; for sedation; 15:11:45 Fentanyl 50 mcg I.V. was administered by Dany Madrigal RN; for sedation; 15:12:02 Inflate balloon Inflation number: 1 A EMERGE OTW 2.5 x 12 balloon ([id number]) was prepped and advanced across the Mid CX 80, then inflated to 12 SHAHBAZ for 0:14 (min:sec) . 15:12:40 Inflation number: 2 The EMERGE OTW 2.5 x 12 balloon ([id number]) was reinflated across the Mid CX , to 14 SHAHBAZ for 0:28 (min:sec) . 15:12:46 Balloon removed over the wire. 15:18:40 Place stent Inflation Number: 3 A MIGUELITO OTW 3.5 x 15 stent ([id number]) was prepped and advanced across the Mid CX 80. The stent was deployed at 14 SHAHBAZ for 0:00 (min:sec) 0. 15:19:54 EXOSEAL 6Fr (EX600) opened to sterile field. 15:20:00 Wire removed. 15:20:01 Guide catheter removed. 15:20:16 Sheath removed intact; hemostasis achieved with Exoseal to the Right Femoral artery. 15:20:20 Procedure ended.(Physican Out) 15:21:00 Fluoroscopy time 08.50 minutes. 15:21:05 Fluoroscopy dose: 821 mGy 15:21:05 Flurop Dose total: 821 15:21:18 Contrast amount:Isovue 300 55ml. 15:21:20 Sharps counted by scrub and verified by R.N. 15:21:21 Insertion/operative site no bleeding no hematoma. 15:21:25 Post-op/insertion site Right Femoral artery dressed using a 4 x 4 and Tegaderm. 15:21:28 Post Procedure Pulses reassessed and unchanged 15:21:33 Post procedure rhythm: unchanged. 15:21:48 Estimated blood loss: 10 ml 15:21:52 Post procedure instruction explained to patient.Patient verbalizes understanding. 15:22:16 Procedure type changed to Cath procedure, Diagnostic procedure, Sedation Charges, Moderate Sedation up to 15 minutes, PCI procedure, Coronary Stent, Coronary Stent Initial 15:22:18 Procedure and supply charges have been captured, reviewed, submitted and are correct. 15:22:42 Procedure Complication : No complications 15::45 Vital chart was stopped 15::45 See physician's report for complete and final results. 15:22:48 Report given to [facility]. 15:22:52 Patient transfered to [facility] with Bed. 15:22:54 Procedure ended. 15:22:54 Full Disclosure recording stopped 15:23:00 End room use (Document Last) Intervention Summary Intervention Notes Time ActionType Lesion and Equipment Action# Pressure Duration Attributes Used 15:12:02 Inflate Mid CX EMERGE OTW 1 12 00:14 balloon 2.5 x 12 balloon ([id number]) 15:12:40 Reinflate Mid CX EMERGE OTW 2 14 00:28 balloon 2.5 x 12 balloon ([id number]) 15:18:40 Place stent Mid CX MIGUELITO OTW 3.5 3 14 00:00 x 15 stent ([id number]) Device Usage Item Name Manufacture Quantity Catalog Number Hospital Part Current M inimal Lot# / Charge Number Stock Stock Serial# Code Tegaderm 4 x 3M 1 1626W 622669 559319 528924 5 4 (1626W) ACIST Hand Acist 1 04424 938515 985102 178012 5 Control Medical (02280) Systems Inc ACIST Syringe Acist 1 03933 381260 681699 403778 2 0 (67040) Medical Systems Inc Medline Cath Medline 1 [id number] 805784 82549 074270 5 Pack ([id number]) Bag Decanter Microtek 1 179709 66754 799392 5 (2002S) Medical Inc. ACIST Acist 1 56228 838328 158185 631694 5 IdenTrust Medical (90693) Systems Inc EMERALD Guide Cardinal 1 502-455 620415 735156 790294 5 Wire Health (502455) INFLATOR Merit 1 KR7461 682663 840176 904265 1 5 [facility] Medical BasixCompak (PF6758) SHEATH 6FR Terumo 1 DFF941 487511 127305 250848 4 0 Carteret (PHG862) WHISPER 300cm Archer 1 [id number] 419776 442084 668206 5 guide wire Vascular (4732554HF) GUIDE 6FR EBU Medtronic 1 [id number] 334183 91430 277078 3 3.5 catheter (EX8XUY40) IV Extension Hospira 1 99132-05 258168 66562 452726 5 Set CHOICE PT Quechee 1 [id number] 131893 440625 332157 5 Extra Support Scientific J 300cm guide wire ([id number]) EMERGE OTW [place] 1 [id number] 632360 649533 049956 5 [id number] 2.5 x 12 Scientific balloon ([id number]) MIGUELITO OTW 3.5 Medtronic 1 [id number] 695553 3881473 325012 5 [id number] x 15 stent ([id number]) EXOSEAL 6Fr Cardinal 1 EX600 418266 089275 838324 1 0 (EX600) Health Signature Audit [place] Stage Time Signature Unsigned Intra-Procedure 03/07/2019 Magalys Brooks 3:24:08 PM RT(R) Signatures Monitor : Magalys Brooks Signature : RT Date : Time : [facility] [address] [place] [address]
[~2019-03-03 09:19] MED LIST changes: +ACETAMINOPHEN500 M1 PO
[2019-03-03] MEDS ORDERED: ULTRAM50 MG PO (09:24)
[2019-03-03] MEDS ORDERED: BACLOFEN20 M1 PO (09:24)
[2019-03-03 10:40] LABS: BASOPHILS 0.1 % (0-2); HEMATOCRIT 38.3 % (42.0-54.0); HEMOGLOBIN 12.4 g/dL (13.5-17.5); IMMATURE GRANULOCYTES 0.2 % (0-5); LYMPHOCYTES 11.1 % (15-50); MCH 29.7 pg (26.0-34.0); MCHC 32.4 g/dL (31.0-37.0); MCV 91.8 fL (80.0-100.0); MEAN PLATELET VOLUME 10.4 fL (7.4-10.4); MONOCYTES 10.4 % (2-11); NEUTROPHILS 77.2 % (40-80); PLATELET COUNT 164 10x3/uL (130-400); RBC 4.17 10x6/uL (4.20-6.10); WBC 8.7 10x3/uL (4.8-10.8)
[2019-03-03 10:54] LABS: ALBUMIN 3.4 g/dL (3.4-5.0); ANION GAP 11.5 mmol/L (8-16); BILIRUBIN - TOTAL 0.35 mg/dL (0.2-1.3); CALCIUM 9.1 mg/dL (8.5-10.1); CARBON DIOXIDE 28.5 mmol/L (21.0-32.0); CREATININE - SERUM 1.3 mg/dL (0.6-1.3); PROTEIN - SERUM 7.2 g/dL (6.4-8.2)
[2019-03-03 11:03] LABS: THYROID STIMULATING HORMONE 2.1 uIU/mL (0.36-3.74)
--- NOTE | 2019-03-03 12:05 | NUR ---
PT TO MRI VIA WHEELCHAIR IN STABLE CONDITION.
--- NOTE | 2019-03-03 13:50 | NUR ---
ATTEMPTED TO PERFORM IN AND OUT CATH FOR URINE SPECIMEN, UNABLE DUE TO URETHRA BEING CLOSED, ER PROVIDER NOTIFIED AND CAME TO THE ROOM WITH ME TO ASSESS, ATTEMPTED AGAIN WITH A VERY SMALL FEMALE IN AND OUT CATHETER AND WAS STILL UNABLE TO INSERT, HAD RESISTANCE AND THE PENIS RETRACTED WITH ADDED PRESSURE. PT TOLERATED WELL WITHOUT COMPLAINT.
[2019-03-03 16:32] LABS: APPEARANCE CLEAR (CLEAR); BILIRUBIN NEGATIVE (NEGATIVE); COLOR YELLOW (YELLOW); GLUCOSE NEGATIVE (NEGATIVE); KETONE NEGATIVE (NEGATIVE); NITRITE NEGATIVE (NEGATIVE); PROTEIN NEGATIVE (NEGATIVE); UROBILINOGEN NORMAL (NORMAL)
[2019-03-03 17:35] VITALS: BMI 31.8
--- NOTE | 2019-03-03 20:00 | NUR ---
ASSESSMENT SPER FLOWSHEET. BOTH LOWER EXTREMITIES SWOLLEN IV PATENT RT FOREARM OF NS AT 75CC'S/HR. ABRAN BED ALARM MAT APPLIED TO PATIENT'S BED. SR UP X2 CALL LIGHT WITHIN REACH YELLOW SAFETY MEASURES IN USE DOOR OPENED.
[2019-03-03 20:31] VITALS: BP 146/62
--- NOTE | 2019-03-03 21:45 | NUR ---
FSBS=99. NO COVERAGE NEEDED.
--- NOTE | 2019-03-03 22:00 | NUR ---
JOSSUE FRANKEL SHAREPOINT ANALYST HERE TO SEE PATIENT.
--- NOTE | 2019-03-04 | NUR ---
EYES CLOSED RESPIRATIONS WITH EASE AND UNLABORED.
[2019-03-04 01:17] VITALS: BP 137/58
[2019-03-04 05:20] VITALS: BP 136/63
[2019-03-04 06:31] LABS: BASOPHILS 0.4 % (0-2); EOSINOPHILS 3.8 % (0-7); HEMATOCRIT 37.3 % (42.0-54.0); HEMOGLOBIN 11.9 g/dL (13.5-17.5); IMMATURE GRANULOCYTES 0.4 % (0-5); MCH 29.1 pg (26.0-34.0); MCHC 31.9 g/dL (31.0-37.0); MCV 91.2 fL (80.0-100.0); MEAN PLATELET VOLUME 10.1 fL (7.4-10.4); MONOCYTES 13.4 % (2-11); PLATELET COUNT 160 10x3/uL (130-400); RBC 4.09 10x6/uL (4.20-6.10)
[2019-03-04 06:51] LABS: WBC 4.7 10x3/uL (4.8-10.8)
[2019-03-04 06:58] LABS: ANION GAP 12.9 mmol/L (8-16); CALCIUM 8.8 mg/dL (8.5-10.1); CARBON DIOXIDE 27.2 mmol/L (21.0-32.0); CREATININE - SERUM 1.1 mg/dL (0.6-1.3); MAGNESIUM - SERUM 1.7 mg/dL (1.8-2.4); PHOSPHOROUS 3.2 mg/dL (2.5-4.9)
--- NOTE | 2019-03-04 07:04 | NUR ---
ETVA=043 NO COVERAGE
[2019-03-04 07:15] LABS: POTASSIUM - SERUM 4.1 mmol/L (3.5-5.1)
[2019-03-04 08:44] VITALS: BP 128/50
--- NOTE | 2019-03-04 11:17 | NUR ---
ICU TRANFER RECIEVED AT THIS TIME. A/O, ARRIVED VIA BED, ROOM AIR. NG TUBE TO R NARE, IVS TO BOTH R AND L ARM ALL PATENT NONTENDER. NO COMPLAINTS VOICED. WILL CONTINUE TO MONITOR.
[2019-03-04 12:50] VITALS: BP 132/56; BP 148/81
[2019-03-04 13:52] LABS: % SATURATION 27 % (15-55); IRON 67 ug/dl (35-150); TOTAL IRON BIND CAPACITY 244 ug/dl (260-445); UNSAT IRON BIND CAPACITY 177 ug/dl (150-375)
[2019-03-04 13:57] LABS: FERRITIN 209 ng/mL (3-244)
[2019-03-04 16:41] VITALS: BP 135/54
--- NOTE | 2019-03-04 20:00 | NUR ---
ASSESSMENT PER FLOWSHEET. IV PATENT RT FOREARM OF NS AT 75CC'S/HR. SITE CLEAR. SR UP X2 CALL LIGHT WITHIN REACH ABRAN MAT TO BED YELLOW SAFETY MEASURES IN USE DOOR OPENED.
[2019-03-04 20:24] VITALS: BP 135/56
--- NOTE | 2019-03-04 21:00 | NUR ---
MDWFE=928. NO COVERAGE NEEDED.
--- NOTE | 2019-03-05 | NUR ---
VOIDED 450 YELLOW URINE BLADDER SCAN=47CC'S IN BLADDER.
[2019-03-05 00:36] VITALS: BP 139/63
[2019-03-05 04:45] VITALS: BP 135/61
[2019-03-05 05:00] LABS: BASOPHILS 0.3 % (0-2); EOSINOPHILS 4.2 % (0-7); HEMATOCRIT 37.3 % (42.0-54.0); HEMOGLOBIN 12.2 g/dL (13.5-17.5); IMMATURE GRANULOCYTES 0.5 % (0-5); MCH 29.3 pg (26.0-34.0); MCHC 32.7 g/dL (31.0-37.0); MCV 89.7 fL (80.0-100.0); MEAN PLATELET VOLUME 10.1 fL (7.4-10.4); PLATELET COUNT 138 10x3/uL (130-400); RBC 4.16 10x6/uL (4.20-6.10); RDW 16.8 % (11.5-14.5); WBC 3.8 10x3/uL (4.8-10.8)
[2019-03-05 05:29] LABS: CALC OSMOLALITY 281 mosm/kg (275-300); CALCIUM 8.4 mg/dL (8.5-10.1); CARBON DIOXIDE 27.6 mmol/L (21.0-32.0); CHLORIDE - SERUM 107 mmol/L (98-107); GLUCOSE 105 mg/dL (74-106); POTASSIUM - SERUM 3.9 mmol/L (3.5-5.1); SODIUM 142 mmol/L (136-145); UREA NITROGEN 11 mg/dL (7-18); eGFR NON AFRICAN AMERICAN 78 mL/min (90-120)
[2019-03-05 08:50] VITALS: BP 157/71
--- NOTE | 2019-03-05 09:00 | NUR ---
ASSESSMENT PER FLOW SHEET. PT IS WITHOUT DISTRESS.MONITOR FOR NEEDS.CALL LIGHT IN REACH
[2019-03-05 12:53] VITALS: BP 121/58
[2019-03-05 15:08] VITALS: Ht 175.3 cm; Wt 97.7 kg
[2019-03-05 17:43] VITALS: BP 135/54
--- NOTE | 2019-03-05 18:47 | NUR ---
REMAINS WITHOUT NEEDS.CONT PLAN OF CARE
--- NOTE | 2019-03-05 20:00 | NUR ---
ASSESSMENT PER FLOWSHEET. IV PATENT RT FOREARM WITH NS AT 50CC'S/HR SITE CLEAR. ABRAN BED ALARM MAT IN USE SR UP X2 CALL LIGHT WITHIN REACH. TELM. SR W/HR 66-68. BOTH LOWER EXTREMITIES HAVE DISCOLORATION NOTED.REFUSES SCD'S
[2019-03-05 21:00] VITALS: BP 138/58
--- NOTE | 2019-03-05 21:15 | NUR ---
MEDS PER NOV. XUQI=515.NO COVERAGE NEEDED
[2019-03-06 00:46] VITALS: BP 101/65
--- NOTE | 2019-03-06 01:31 | NUR ---
EYES CLOSED RESPIRATIONS WITH EASE AND UNLABORED.
[2019-03-06 05:06] VITALS: BP 134/60
--- NOTE | 2019-03-06 06:05 | NUR ---
MEDS PER NOV UXXQ=401. NO COVERAGE
[2019-03-06 06:50] LABS: BASOPHILS 0.2 % (0-2); EOSINOPHILS 4.7 % (0-7); HEMATOCRIT 37.1 % (42.0-54.0); IMMATURE GRANULOCYTES 0.5 % (0-5); LYMPHOCYTES 26.8 % (15-50); MCH 29.3 pg (26.0-34.0); MCHC 32.3 g/dL (31.0-37.0); MCV 90.7 fL (80.0-100.0); MEAN PLATELET VOLUME 10.4 fL (7.4-10.4); MONOCYTES 12.3 % (2-11); NEUTROPHILS 55.5 % (40-80); PLATELET COUNT 143 10x3/uL (130-400); RBC 4.09 10x6/uL (4.20-6.10); RDW 16.8 % (11.5-14.5); WBC 4.1 10x3/uL (4.8-10.8)
[2019-03-06 06:55] LABS: CALC OSMOLALITY 284 mosm/kg (275-300); CALCIUM 8.6 mg/dL (8.5-10.1); CHLORIDE - SERUM 109 mmol/L (98-107); CHOL - HDL RATIO 3.2 ratio (2.3-4.9); CHOLESTEROL, TOTAL 138 mg/dL (0-200); GLUCOSE 126 mg/dL (74-106); HDL CHOLESTEROL 43 mg/dL (32-96); LDL CHOLESTEROL 72 mg/dL (0-100); LDL-HDL RATIO 1.7 ratio (1.5-3.5); POTASSIUM - SERUM 3.8 mmol/L (3.5-5.1); SODIUM 142 mmol/L (136-145); TRIGLYCERIDE 119 mg/dL (30-200); UREA NITROGEN 13 mg/dL (7-18); eGFR NON AFRICAN AMERICAN 78 mL/min (90-120)
--- NOTE | 2019-03-06 07:49 | NUR ---
PT RESTING IN BED. DENIES ANY NEEDS. NO S/S OF ACUTE DISTRESS. CL IN PLACE.
[2019-03-06 08:30] VITALS: BP 134/54
[2019-03-06 12:55] VITALS: BP 148/55
--- NOTE | 2019-03-06 15:40 | NUR ---
IV LEAKING. DC WITH TIP INTACT. RESITED IV TO R HAND. FLUSHED WELL.NO S/S OF ACUTE DISTRESS. CL IN PLACE.
[2019-03-06 16:38] VITALS: BP 139/64
--- NOTE | 2019-03-06 19:00 | NUR ---
REPORT RECEIVED AND CARE OF PT ASSUMED. PT LYING IN SUPINE POSITION WATCHING TV. IV IN RIGHT HAND PATENT WITH NS INFUSING AT 50 ML / HR. WILL MONITOR FOR NEEDS.
[2019-03-06 20:00] VITALS: BP 145/64
--- NOTE | 2019-03-06 21:18 | NUR ---
HS MEDICATIONS GIVEN. FSBS 135 THIS CHECH REQUIRING NO COVERAGE PER SLIDING SCALE.
--- NOTE | 2019-03-06 22:00 | NUR ---
CHANGED OUT IV TUBING PER PROTOCOL.
[2019-03-07] VITALS: BP 131/52
--- NOTE | 2019-03-07 00:25 | NUR ---
CONSENTED FOR AM HEART CATH. NPO STATUS STARTED AT MIDNIGHT.
--- NOTE | 2019-03-07 00:49 | NUR ---
PLACED HOLD ON METFORMIN ROR 48 HOURS POST HEART CATH PER PROTOCOL.
[2019-03-07 04:00] VITALS: BP 132/53
[2019-03-07 04:48] LABS: BASOPHILS 0.2 % (0-2); EOSINOPHILS 4.7 % (0-7); HEMATOCRIT 36.6 % (42.0-54.0); HEMOGLOBIN 11.9 g/dL (13.5-17.5); IMMATURE GRANULOCYTES 0.4 % (0-5); LYMPHOCYTES 31.3 % (15-50); MCH 29.5 pg (26.0-34.0); MCHC 32.5 g/dL (31.0-37.0); MCV 90.6 fL (80.0-100.0); MEAN PLATELET VOLUME 10.4 fL (7.4-10.4); MONOCYTES 12.2 % (2-11); NEUTROPHILS 51.2 % (40-80); PLATELET COUNT 146 10x3/uL (130-400); RBC 4.04 10x6/uL (4.20-6.10); RDW 16.7 % (11.5-14.5); WBC 4.7 10x3/uL (4.8-10.8)
[2019-03-07 04:52] LABS: INR 1.07 (0.85-1.17); PROTIME 13.4 SECONDS (11.6-15.0)
[2019-03-07 04:56] LABS: ANION GAP 11.6 mmol/L (8-16); CALCIUM 8.5 mg/dL (8.5-10.1); CARBON DIOXIDE 28.3 mmol/L (21.0-32.0); CREATININE - SERUM 1.1 mg/dL (0.6-1.3); POTASSIUM - SERUM 3.9 mmol/L (3.5-5.1)
--- NOTE | 2019-03-07 05:15 | NUR ---
LEROY BATH PERFORMED PRE OP FOR SCHEDULED HEART CATH THIS AM.
[2019-03-07 08:38] VITALS: BP 128/59; BP 142/84
[2019-03-07 13:00] VITALS: BP 146/68
--- NOTE | 2019-03-07 16:00 | NUR ---
RECEIVED PT FROM COLLECTIONS REP AAOX4 RESP UNLABORED SKIN W/D TELEMETRY APPLED SR RATE 64 PPP X4 DRSG C/D/I TO RT GROIN RED GROIN NOTED WITH SOME EXCORIATION PT DENIES ANY NEEDS OR DISCOMFORT AT THIS TIME VSS
--- NOTE | 2019-03-07 19:38 | NUR ---
RESUMING PATIENT CARE. PATIENT IS ALERT AND ORIENTED, RESTING COMFORTABLY IN BED. RESPIRATIONS ARE EVEN AND UNLABORED. PATIENT REMAINS ON BEDREST POST HEART CATH UNTIL1999. DRESSING TO THE RIGHT GROIN IS C/D/I. NO S/S OF DISTRESS. NO C/O PAIN. CALL LIGHT WITHIN REACH. WILL CPOC.
[2019-03-07 20:00] VITALS: BP 140/56
--- NOTE | 2019-03-07 23:42 | NUR ---
PATIENT IS RESTING COMFORTABLY IN BED. RESPIRATIONS ARE EVEN AND UNLABORED. NO S/S OF DISTRESS. NO C/O PAIN. CALL LIGHT WITHIN REACH. WILL CPOC.
[2019-03-08] VITALS: BP 140/60; BP 148/56
--- NOTE | 2019-03-08 03:42 | NUR ---
PATIENT RESTING COMFORTABLY, RESPIRATIONS ARE EVEN AND UNLABORED. NO S/S OF DISTRESS. CALL LIGHT WITHIN REACH. WILL CPOC.
[2019-03-08 04:00] VITALS: BP 136/56
[2019-03-08 05:09] LABS: BASOPHILS 0.2 % (0-2); EOSINOPHILS 5.1 % (0-7); HEMATOCRIT 38.1 % (42.0-54.0); HEMOGLOBIN 12.4 g/dL (13.5-17.5); IMMATURE GRANULOCYTES 0.2 % (0-5); LYMPHOCYTES 22.6 % (15-50); MCH 29.3 pg (26.0-34.0); MCHC 32.5 g/dL (31.0-37.0); MCV 90.1 fL (80.0-100.0); MEAN PLATELET VOLUME 10.3 fL (7.4-10.4); MONOCYTES 11.1 % (2-11); NEUTROPHILS 60.8 % (40-80); PLATELET COUNT 146 10x3/uL (130-400); RBC 4.23 10x6/uL (4.20-6.10); RDW 16.5 % (11.5-14.5); WBC 5.7 10x3/uL (4.8-10.8)
[2019-03-08 05:28] LABS: ANION GAP 9.9 mmol/L (8-16); CALCIUM 8.6 mg/dL (8.5-10.1); CARBON DIOXIDE 28.1 mmol/L (21.0-32.0); CREATININE - SERUM 1.1 mg/dL (0.6-1.3)
--- NOTE | 2019-03-08 05:37 | NUR ---
ORTHOSTATIC BP: LAYING 136/56 HR 69 SITTIN/50 HR 72 STANDIN/48 HR 80
[2019-03-08 09:32] VITALS: BP 146/53
--- NOTE | 2019-03-08 10:50 | MORECARE ---
CASE MANAGEMENT DISCHARGE SUMMARY PATIENT: LIZETH RUIZ UNIT: [id number] ADM DATE: 03/03/19 AGE: 74 : [birth year] SEX: M ROOM/BED: D.2117 AUTHOR: ANDREW PRASAD PHYSICIAN: REFERRING PHYSICIAN: MARLEN BELTRÁN MD DATE OF SERVICE: 03/08/19 Discharge Plan Patient Name: LIZETH RUIZ [facility] [facility] 1945 Planned Disposition: Home Anticipated Discharge Date: Discharge Date: Expected LOS: Initial Reviewer: [email or web address] Initial Review Date: 03/08/2019 Generated: 03/08/19 11:49 am Comments DCP- Discharge Planning Updated by LISA: Becky Debi on 03/08/19 9:[address] Patient Name: LIZETH RUIZ Admission Status: ER Accout number: [id number] Admission Date: 03-03-2019 : 1945 Admission Diagnosis:SPINAL STENOSIS, 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 PT WAS EDUCATED ON CM ROLE AND ON ALL SERVICES AVAILABLE LIKE DME, HOME HEALTH AND REHAB SERVICES. PT DENIES ANY NEEDS AT THIS TIME. LIVES ALONE AND STATES HOME IS A SAFE DC PLAN. CM WILL CONT TO FOLLOW THRU STAY Designer Architect: Becky Carrera Patient Name: LIZETH RUIZ Page [id number] at 1050 All edits/amendments must be made on the electronic document DICTATION DATE: 03/08/19 1049 ROOM ATTENDANTS: LEMUEL 03/08/19 1049 RPT#: [id number] DC DATE: STATUS: ADM IN [facility] [address] [facility] [address] END OF REPORT
--- NOTE | 2019-03-08 12:16 | NUR ---
TELEMETRY SR. IV PATENT. CALL LIGHT IN REACH. WILL CONT. PLAN OF CARE.
[2019-03-08 19:51] VITALS: BP 129/52
--- NOTE | 2019-03-08 20:16 | NUR ---
INITAIL ROUNDS COMPLETED AT 1910 HRS. PT DENIED ANY DISCOMFORT. ASSESSMENT COMPLETED AT 1945HRS. SR PER CM HR 69. ALERT AND ORIENTED TO PERSON, PLACE AND TIME. JAY. R GROIN CLEAN, DRY AND INTACT. PALPABLE PERIPHERAL PULSES. LUNGS DIMINISHED IN BASES BILAT. DRESSING TO MIDBACK CLEAN, DRY AND INTACT. BRUISES NOTED AROUND DRESSING. SR UP X2, CALL LIGHT WITHIN REACH.
--- NOTE | 2019-03-08 21:33 | NUR ---
FSBS 154. 2 UNITS HUMALOG GIVEN SUB-Q TO UPPER R ARM. PM SNACK SERVED. CALL LIGHT WITHIN REACH.
--- NOTE | 2019-03-08 23:45 | NUR ---
PT AWAKE; DENIES ANY DISCOMFORT. CALL LIGHT WITHIN REACH.
--- NOTE | 2019-03-09 01:47 | NUR ---
PT AWAKE; DENIES ANY DISCOMFORT. SR UP X2, CALL LIGHT WITHIN REACH.
--- NOTE | 2019-03-09 04:05 | NUR ---
PT RESTING WITH EYES CLOSED. RESP EVEN AND REGULAR. SR UP X2, CALL LIGHT WITHIN REACH.
[2019-03-09 04:30] VITALS: BP 132/58
[2019-03-09 05:11] LABS: BASOPHILS 0.4 % (0-2); EOSINOPHILS 4.5 % (0-7); HEMATOCRIT 36.3 % (42.0-54.0); HEMOGLOBIN 11.8 g/dL (13.5-17.5); IMMATURE GRANULOCYTES 0.8 % (0-5); LYMPHOCYTES 25.8 % (15-50); MCH 29.2 pg (26.0-34.0); MCHC 32.5 g/dL (31.0-37.0); MCV 89.9 fL (80.0-100.0); MEAN PLATELET VOLUME 10.2 fL (7.4-10.4); MONOCYTES 15.1 % (2-11); NEUTROPHILS 53.4 % (40-80); PLATELET COUNT 122 10x3/uL (130-400); RBC 4.04 10x6/uL (4.20-6.10); RDW 16.4 % (11.5-14.5); WBC 5.2 10x3/uL (4.8-10.8)
[2019-03-09 05:20] LABS: ANION GAP 9.9 mmol/L (8-16); CALCIUM 8.6 mg/dL (8.5-10.1); CARBON DIOXIDE 28.3 mmol/L (21.0-32.0); CREATININE - SERUM 1.1 mg/dL (0.6-1.3); POTASSIUM - SERUM 4.2 mmol/L (3.5-5.1)
--- NOTE | 2019-03-09 06:57 | NUR ---
VSS THROUGHOUT NIGHT. SR PER CM. PT DENIED ANY DISCOMFORT. AM FSBS 142. NO COVERAGE NECESSARY. NEEDS MET; WILL CONTINUE TO MONITOR.
[2019-03-09 07:41] VITALS: BP 123/49
--- NOTE | 2019-03-09 10:48 | OP ---
PATIENT NAME: LIZETH RUIZ MEDICAL RECORD: [id number] :[birth year] LOCATION:D.M2 D.2117 ADMISSION DATE:03/03/19 SURGEON: ISRAEL ZEE MD DATE OF OPERATION: 03/07/2019 PROCEDURE: Left heart catheterization with IV sedation, please see cath report for previous data. DESCRIPTION OF PROCEDURE: A #6-Slovenian sheath was placed in the right femoral artery. EBU 3.5 guided catheter provided fair guide catheter support. Pre-deployment balloon was a 2.5 x 15 mm Obion balloon up and down the pre-deployment. Next, a 3.5 x 15 mm David drug-eluting stent was inflated at 14 atmospheres for 45 seconds. Final angiography shows excellent resolution of 80% stenosis, no significant residual. PAPO flow was 3 throughout the procedure. Sheath was closed with ExoSeal device. The patient is previously on Plavix, heparin was used in the case. TRANSINT:[id number] Voice Confirmation ID: [id number] DOCUMENT ID: [id number] ISRAEL ZEE MD at 1048 CC: [id number] DICTATION DATE: 03/07/19 1536 QUALITY ASSURANCE COACH: 03/07/19 2236 ADM IN [facility] [address] [place] [address]
[2019-03-09 11:38] VITALS: BP 139/49
--- NOTE | 2019-03-09 14:00 | NUR ---
IV TELEMETRY DCD. DC PLANS GIVEN. UNDERSTANDING VOICED.
--- NOTE | 2019-03-09 14:16 | MORECARE ---
CASE MANAGEMENT DISCHARGE SUMMARY PATIENT: LIZETH RUIZ UNIT: [id number] ADM DATE: 03/03/19 AGE: 74 : 45 SEX: M ROOM/BED: D.7266 AUTHOR: SHANICEDOC PHYSICIAN: REFERRING PHYSICIAN: MARLEN BELTRÁN MD DATE OF SERVICE: 03/09/19 Discharge Plan Patient Name: LIZETH RUIZ Facility: [facility]:[place] : 1945 Planned Disposition: Home Anticipated Discharge Date: Discharge Date: Expected LOS: Initial Reviewer: [email or web address] Initial Review Date: 03/08/2019 Generated: 03/09/19 3:15 pm Comments DCP- Discharge Planning Updated by [email or web address]: Apolonia Vasquez on 03/09/19 1:[address] Patient Name: LIZETH RUIZ Encounter No: [id number] : 1945 Primary Insurance: [facility] MEDICARE SOLUTIONS Anticipated DC Date: Planned Disposition: Home External Planned Provider: : DCP follow-up note: CM met with patient to discuss dc plan. Patient to discharge home alone today and stated he has a walker. CM discussed home health and he stated he would like to have therapy at home. Order obtained and CHRISTI presented to the patient. CHRISTI form signed by patient for [facility]. Signed form placed in chart and signed form given to patient. CM faxed referral to [facility] and will call to notify them of the referral. CM verified his home address and contact number. Patient denied further dc needs at this time and feels his dc home is safe. He stated he has a friend that will transport him home at time of discharge. CM will continue to follow and will assist as needed with dc plans/needs. DC IMM delivered, explained, signed by the patient, and placed in his chart. Signed form also left with patient. 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 PT WAS EDUCATED ON CM ROLE AND ON ALL SERVICES AVAILABLE LIKE DME, HOME HEALTH AND REHAB SERVICES. PT DENIES ANY NEEDS AT THIS TIME. LIVES ALONE AND STATES HOME IS A SAFE DC PLAN. CM WILL CONT TO FOLLOW THRU STAY Psych Coordinator: Becky Carrera Coverage Notice Reviewer: [email or web address] Glendy Vasquez Notice Issued Date-Time: 03/09/2019 12:58 Notice Type: IM Discharge Notice Notice Delivered To: Patient Relationship to Patient: Podiatric Aide Name: Delivery Method: HAND - Hand Delivered Tina Days: Prior Verbal Notification: Recipient Understood Notice: Recipient Signature: Med Rec Note Co-signed by Attending: Coverage Notice Comment: Last DP export: 03/08/19 9:49 am Patient Name: LIZETH RUIZ Page [id number] at 1416 All edits/amendments must be made on the electronic document DICTATION DATE: 03/09/19 1415 ER REGISTRAR: LEMUEL 03/09/19 1415 RPT#: [id number] DC DATE: STATUS: ADM IN [facility] [address] [place] [address] END OF REPORT
--- NOTE | 2019-03-09 14:22 | MORECARE ---
CASE MANAGEMENT DISCHARGE SUMMARY PATIENT: LIZETH RUIZ UNIT: [id number] ADM DATE: 03/03/19 AGE: 74 : 45 SEX: M ROOM/BED: D.4770 AUTHOR: SHANICEDOC PHYSICIAN: REFERRING PHYSICIAN: MARLEN BELTRÁN MD DATE OF SERVICE: 03/09/19 Discharge Plan Patient Name: LIZETH RUIZ Facility: [facility]:[place] : 1945 Planned Disposition: Home Anticipated Discharge Date: Discharge Date: Expected LOS: Initial Reviewer: [email or web address] Initial Review Date: 03/08/2019 Generated: 03/09/19 3:22 pm Comments DCP- Discharge Planning Updated by [email or web address]: Apolonia Vasquez on 03/09/19 1:[address] Patient Name: LIZETH RUIZ Encounter No: [id number] : 1945 Primary Insurance: [facility] MEDICARE SOLUTIONS Anticipated DC Date: Planned Disposition: Home External Planned Provider: : DCP follow-up note: CM met with patient to discuss dc plan. Patient to discharge home alone today and stated he has a walker. CM discussed home health and he stated he would like to have therapy at home. Order obtained and CHRISTI presented to the patient. CHRISTI form signed by patient for [facility]. Signed form placed in chart and signed form given to patient. CM faxed referral to [facility] and will call to notify them of the referral. CM verified his home address and contact number. Patient denied further dc needs at this time and feels his dc home is safe. He stated he has a friend that will transport him home at time of discharge. CM will continue to follow and will assist as needed with dc plans/needs. DC IMM delivered, explained, signed by the patient, and placed in his chart. Signed form also left with patient. 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 PT WAS EDUCATED ON CM ROLE AND ON ALL SERVICES AVAILABLE LIKE DME, HOME HEALTH AND REHAB SERVICES. PT DENIES ANY NEEDS AT THIS TIME. LIVES ALONE AND STATES HOME IS A SAFE DC PLAN. CM WILL CONT TO FOLLOW THRU STAY Director Child Abuse Therapy: Becky Carrera External Providers External Provider: [facility] Next Contact Date: Service Request Date: Service Type: Resolution: Reviewer: Comments: Coverage Notice Reviewer: [email or web address] Glendy Vasquez Notice Issued Date-Time: 03/09/2019 12:58 Notice Type: IM Discharge Notice Notice Delivered To: Patient Relationship to Patient: Cat Scan Tech Name: Delivery Method: HAND - Hand Delivered Tina Days: Prior Verbal Notification: Recipient Understood Notice: Recipient Signature: Med Rec Note Co-signed by Attending: Coverage Notice Comment: Last DP export: 03/09/19 1:16 pm Patient Name: LIZETH RUIZ Page 70004 at 1422 All edits/amendments must be made on the electronic document DICTATION DATE: 03/09/19 142 ANTENNA DESIGN ENGINEER: LEMUEL 03/09/19 1422 RPT#: [id number] DC DATE: STATUS: ADM IN [facility] [address] [place] [address] END OF REPORT
--- NOTE | 2019-03-09 14:45 | NUR ---
ESCORTED TO CAR BY W/C.
== END 2019-03-09 14:46 | disposition home health service (06) | DRG 982 ==
LOC: D.ER 09:19 → D.MS 16:36 → D.M2 03-07 15:45
PROVIDERS: Family Medicine; Internal Medicine Interventional Cardiology; ADMIT Internal Medicine Nephrology; ATTEND Internal Medicine Nephrology
PROC: 027034Z Dilation of Coronary Artery, One Artery with Drug-eluting Intraluminal Device, Percutaneous Approach (ICD-10-PCS; principal; 2019-03-07 14:25)
DX: M48.061 Spinal stenosis, lumbar region without neurogenic claudication (principal); N17.9 Acute kidney failure, unspecified; I50.30 Unspecified diastolic (congestive) heart failure; M47.9 Spondylosis, unspecified; N47.1 Phimosis; I87.8 Other specified disorders of veins; I25.10 Atherosclerotic heart disease of native coronary artery without angina pectoris; D64.9 Anemia, unspecified; E11.65 Type 2 diabetes mellitus with hyperglycemia; E78.5 Hyperlipidemia, unspecified; I11.0 Hypertensive heart disease with heart failure; I48.0 Paroxysmal atrial fibrillation; Z91.81 History of falling

== ENCOUNTER → 2019-05-07 09:19 | Outpatient (CLI) | payer MEDICARE, MEDICAID ==
[2019-03-05 15:08] VITALS: BMI 31.8
[~2019-05-07 09:19] MED LIST changes: +BACLOFEN20 M1 PO; +ULTRAM50 MG PO
== END | disposition home or self-care (01) ==
LOC: D.CT 09:19
PROVIDERS: ATTEND Internal Medicine Pulmonary Disease
DX: R91.8 Other nonspecific abnormal finding of lung field (principal)

== ENCOUNTER → 2019-09-09 12:53 | Outpatient (CLI) | payer MEDICARE, MEDICAID ==
[2019-03-05 15:08] VITALS: BMI 31.8
--- NOTE | 2019-09-11 12:06 | EC ---
PATIENT:LIZETH RUIZ DATE OF SERVICE: 09/09/19 SEX: M MEDICAL RECORD: [id number] DATE OF : [birth year] LOCATION:D.[facility] AGE OF PATIENT: 74 ADMISSION DATE: 09/09/19 REFERRING PHYSICIAN: INTERPRETING PHYSICIAN: ISRAEL ZEE MD ECHOCARDIOGRAM REPORT ECHO CHARGES 4 ECHO COMPLETE Date: 09/09/19 CLINICAL DIAGNOSIS: DYSPNEA H/O CAD/A-FIB/HTN ECHOCARDIOGRAPHIC MEASUREMENTS (adult normal given) AC root (d.<3.7cm) 3.1 cm LV Septum d (<1.2 cm> 1.3 cm Valve Excursion 1.7 cm LV Septum (systole) 1.7 cm Left Atria (s.<4.0cm> 4.8 cm LVPW d(<1.2cm) 1.3 cm RV (d.<2.3cm) 3.3 cm LVPW (sytole) 1.9 cm LV diastole(<5.6CM) 5.9 cm MV E-F(>70mm/sec) cm LV systole 3.5 cm LVOT Diameter 1.9 cm MV exc.(>10mm) cm Est.ejection fraction (50-75%) % DOPPLER: LVIT cm/sec A 161 cm/sec E 141 cm/sec LA cm/sec RVSP 43.0 mmHg LVOT 174 cm/sec AOP1/2T m/s Asc. Ao 190 cm/sec RVOT 113 cm/sec RA cm/sec PA 118 cm/sec AV Gradient Peak 15.0 mmHg AV Mean 7.1 mmHg AV Area 2.5 cm MV Gradient Peak 12.1 mmHg MV Mean 5.1 mmHg MV Area cm COMMENTS: OP - HC Instrument Worker: 1 SUZIE BARROE Automatic Pad Making Machine Operator: 3 Dr. Figueredo TAPE# PACS Pericardial Effusion N DATE OF SERVICE: Adequate 2D, Color Flow, Spectral Doppler, and M-Mode Mild LVH. LV internal dimension is dilated. LV is globally hypokinetic with reduced EF, estimated 30% to 35%. Aortic valve sclerosis without stenosis by Doppler interrogation. Left atrium is dilated 4.8 cm. Mitral valve shows no prolapse. Mild MR. Right-sided chambers are grossly normal. Mild TR with color flow imaging. ECHOCARDIOGRAM REPORT [id number] LIZETH RUIZ TRANSINT:[id number] Voice Confirmation ID: [id number] DOCUMENT ID: [id number] ISRAEL ZEE MD at 1206 CC: [id number] DICTATION DATE: 09/10/19 1323 FEATHER MAKER: 09/10/19 2152 DEP CLI 09/09/19 [place] [id number] [place] [id number]
== END | disposition home or self-care (01) ==
LOC: D.HCCECHO 12:53
PROVIDERS: ATTEND Internal Medicine Interventional Cardiology
DX: I25.10 Atherosclerotic heart disease of native coronary artery without angina pectoris (principal)

== ENCOUNTER → 2019-09-11 09:16 | Outpatient (CLI) | payer MEDICARE, MEDICAID ==
[2019-03-05 15:08] VITALS: BMI 31.8
== END | disposition home or self-care (01) ==
LOC: D.CT 09:16
PROVIDERS: ATTEND Internal Medicine Pulmonary Disease
DX: R91.1 Solitary pulmonary nodule (principal)

== ENCOUNTER 2020-03-15 12:12 | Observation (INO) | payer MEDICARE, MEDICAID ==
[~2020-03-15] VITALS: Ht 175.3 cm; Wt 145.1 kg
[2020-03-15] MEDS ORDERED: LOVASTATIN10 MG PO (12:26)
[2020-03-15] MEDS ORDERED: GLUCOTROL 5 MG T5 MG (12:27)
[2020-03-15] MEDS ORDERED: BENICAR20 MG (12:27)
[2020-03-15 13:34] LABS: HEMATOCRIT 48.2 % (42.0-54.0); HEMOGLOBIN 15.7 g/dL (13.5-17.5); LYMPHOCYTES 18.6 % (15-50); MCH 29.7 pg (26.0-34.0); MCHC 32.6 g/dL (31.0-37.0); MCV 91.1 fL (80.0-100.0); MEAN PLATELET VOLUME 9.8 fL (7.4-10.4); NEUTROPHILS 74.1 % (40-80); RBC 5.29 10x6/uL (4.20-6.10); RDW 13.6 % (11.5-14.5); WBC 5.6 10x3/uL (4.8-10.8)
[2020-03-15 13:40] LABS: ANION GAP 11.5 mmol/L (8-16); CALCIUM 9.3 mg/dL (8.5-10.1); CARBON DIOXIDE 28.4 mmol/L (21.0-32.0); CREATININE - SERUM 1.4 mg/dL (0.6-1.3); POTASSIUM - SERUM 4.9 mmol/L (3.5-5.1)
[2020-03-15 13:45] LABS: PLATELET COUNT 181 10x3/uL (130-400)
[2020-03-15 13:47] LABS: BILIRUBIN - TOTAL 0.46 mg/dL (0.2-1.3); PROTEIN - SERUM 8.1 g/dL (6.4-8.2)
[2020-03-15 14:51] LABS: BILIRUBIN NEGATIVE (NEGATIVE); GLUCOSE NEGATIVE (NEGATIVE); KETONE NEGATIVE (NEGATIVE); NITRITE NEGATIVE (NEGATIVE); SPECIFIC GRAVITY 1.015 (1.005-1.020); UROBILINOGEN NORMAL (NORMAL)
[2020-03-15 21:31] LABS: INR 1.04 (0.85-1.17); PROTIME 13.5 SECONDS (11.6-15.0)
[2020-03-15 21:32] LABS: APTT 31.9 SECONDS (22.8-39.4)
[2020-03-15] MEDS ORDERED: GLUCOPHAGE1000 MG PO (21:55)
[2020-03-15] MEDS ORDERED: BENICAR20 MG PO (21:56)
[2020-03-15] MEDS ORDERED: GLUCOTROL 5 MG T5 MG PO (21:56)
--- NOTE | 2020-03-15 22:03 | NUR ---
ASSISTED PATIENT TO CHANGED INTO GOWN AND POSITIONED IN BED FOR COMFORT. PROBIDED OVERHEAD TRAPEZE FOR ASSISTANCE MOVING IN BED. GRIPPER SOCKS PLACED OVER HIS SOCKS FOR TRACTION. GAVE ICE WATER AND ICE CREAM FOR HS SNACK. CALL ORIENTED TO ROOM AND CALL LIGHT.
[2020-03-15 22:04] VITALS: BP 164/71; BMI 47.3
[2020-03-16 04:00] VITALS: BP 148/70
--- NOTE | 2020-03-16 05:00 | NUR ---
I have reviewed this patient and I concur with the Shift Assessment completed by the Licensed Practical Nurse today this shift.
[2020-03-16 05:38] LABS: HEMATOCRIT 44.6 % (42.0-54.0); LYMPHOCYTES 12.5 % (15-50); MCH 30.3 pg (26.0-34.0); MCHC 33.6 g/dL (31.0-37.0); MCV 90.1 fL (80.0-100.0); MEAN PLATELET VOLUME 10.5 fL (7.4-10.4); NEUTROPHILS 86.5 % (40-80); RBC 4.95 10x6/uL (4.20-6.10); RDW 13.3 % (11.5-14.5)
[2020-03-16 05:43] LABS: PLATELET COUNT 128 10x3/uL (130-400); WBC 3.6 10x3/uL (4.8-10.8)
[2020-03-16 05:55] LABS: ALBUMIN 3.3 g/dL (3.4-5.0); ALKALINE PHOSPHATASE 90 U/L (30-120); ALT (SGPT) 33 U/L (10-68); BILIRUBIN - TOTAL 0.42 mg/dL (0.2-1.3); CALCIUM 8.5 mg/dL (8.5-10.1); CARBON DIOXIDE 28.2 mmol/L (21.0-32.0); CHLORIDE - SERUM 104 mmol/L (98-107); CKMB 3.1 U/L (0.0-3.6); CREATINE KINASE 200 UL (21-232); CREATININE - SERUM 1.3 mg/dL (0.6-1.3); POTASSIUM - SERUM 4.9 mmol/L (3.5-5.1); SODIUM 137 mmol/L (136-145); UREA NITROGEN 30 mg/dL (7-18); eGFR NON AFRICAN AMERICAN 57 mL/min (90-120)
[2020-03-16 06:08] LABS: CALC OSMOLALITY 287 mosm/kg (275-300); GLUCOSE 235 mg/dL (74-106); TROPONIN-I < 0.017 ng/mL (0.000-0.060)
[2020-03-16 09:35] VITALS: BP 141/60
--- NOTE | 2020-03-16 10:30 | NUR ---
PT SITTING UP IN BED A&O. PIV IN L FOREARM, PATENT AND NON TENDER. LOWER EXTREMITIES HAVE 2+ PITTING EDEMA, DRY CRACKING AND DISCOLORATION. PT C/O OF 4/10 PAIN IN BACK, HE STATES THAT THIS IS THE BEST IT HAS FELT IN DAYS. EDUCATED PT ON WORKING WITH PHYSICAL THERAPY THIS AFTERNOON, PT VERBALIZED UNDERSTANDING. PT ON HIGH FALL RISK, APPLIED YELLOW WRISTBAND, NONSKID SOCKS AND EDUCATED PT ON ASKING FOR HELP, PT VERBALIZED UNDERSTANDING. PT DENIES FURTHER NEEDS. BED LOW, RAILS X2. CL IN REACH. WILL CONTINUE TO MONITOR.
[2020-03-16 13:17] VITALS: BP 139/51
[2020-03-16 13:45] VITALS: Ht 175.3 cm; Wt 145.1 kg
[2020-03-16 17:47] VITALS: BP 129/44
[2020-03-16 20:00] VITALS: BP 128/54
--- NOTE | 2020-03-17 03:07 | NUR ---
I have reviewed this patient and I concur with the Shift Assessment completed by the Licensed Practical Nurse today this shift.
[2020-03-17 04:00] VITALS: BP 133/46
[2020-03-17 06:45] LABS: HEMATOCRIT 40.2 % (42.0-54.0); HEMOGLOBIN 13.2 g/dL (13.5-17.5); LYMPHOCYTES 7.2 % (15-50); MCH 29.5 pg (26.0-34.0); MCHC 32.8 g/dL (31.0-37.0); MCV 89.7 fL (80.0-100.0); MEAN PLATELET VOLUME 10.2 fL (7.4-10.4); PLATELET COUNT 139 10x3/uL (130-400); RBC 4.48 10x6/uL (4.20-6.10); RDW 13.2 % (11.5-14.5)
[2020-03-17 06:46] LABS: WBC 6.5 10x3/uL (4.8-10.8)
[2020-03-17 07:07] LABS: ANION GAP 8.4 mmol/L (8-16); CALCIUM 8.6 mg/dL (8.5-10.1); CREATININE - SERUM 1.3 mg/dL (0.6-1.3); MAGNESIUM - SERUM 1.9 mg/dL (1.8-2.4); POTASSIUM - SERUM 4.4 mmol/L (3.5-5.1)
[2020-03-17 09:07] VITALS: BP 138/48
--- NOTE | 2020-03-17 09:23 | NUR ---
OT NOTE: (DOS 03/16/2020) PT COMPLETED BUE AROM EXERCISES UPRIGHT IN BED. PT COMPLETED POSITIONING IN BED WITH MOD A. PT COMPLETED FACE/HAND HYGIENE WITH SETUP. 0-201 THANK YOU,BRAYDON MAGANA
[2020-03-17] MEDS ORDERED: DECADRON4 MG PO (11:56)
[2020-03-17] MEDS ORDERED: METHOCARBAMOL750 MG PO (11:58)
[2020-03-17 12:50] VITALS: BP 140/50
--- NOTE | 2020-03-17 13:05 | NUR ---
I have reviewed this patient and I concur with the Shift Assessment completed by the Licensed Practical Nurse today this shift.
--- NOTE | 2020-03-17 16:07 | NUR ---
DISCHARGED PATIENT HOME WITH FAMILY VIA WHEELCHAIR. DISCONTINUED IV, CATHETER TIP INTACT. WENT OVER DISCHARGE INSTRUCTIONS WITH PATIENT, VERBALIZED UNDERSTANDING. DENIES ANYTHING FURTHER.
--- NOTE | 2020-03-17 16:16 | NUR ---
OT NOTE: (AM) PT COMPLETED SIDE ROLLING WITH SBA. PT COMPLETED SUPINE TO SIT WITH SBA. PT COMPLETED UE AROM EXERCISES TOLERATED, (PM) PT COMPLETED SUPINE TO SIT WITH SBA. PT COMPLETED SIDE STEPPING WITH CGA USING RW. PT COMPLETED FACE HYGIENE WITH SETUP AT EOB. [phone] THANK YOU,BRAYDON MAGANA
== END 2020-03-17 16:08 | disposition home or self-care (01) ==
LOC: D.ER 12:12 → D.MS 15:55 → OBSVTIME 15:55 → D.MS 15:55
PROVIDERS: Family Medicine; ADMIT Family Medicine; ATTEND Family Medicine
DX: M54.9 Dorsalgia, unspecified (principal); R53.1 Weakness; R26.9 Unspecified abnormalities of gait and mobility; N17.9 Acute kidney failure, unspecified; E11.40 Type 2 diabetes mellitus with diabetic neuropathy, unspecified; E11.65 Type 2 diabetes mellitus with hyperglycemia; I10 Essential (primary) hypertension; I25.10 Atherosclerotic heart disease of native coronary artery without angina pectoris; I48.20 Chronic atrial fibrillation, unspecified; E66.01 Morbid (severe) obesity due to excess calories; G89.29 Other chronic pain; R60.0 Localized edema